=== PATIENT | male | born 1960 | race Caucasian/White ===

== ENCOUNTER 2024-11-05 08:22 | Inpatient (IN) | payer MEDICARE, SELFPAY ==
[2024-11-05] VITALS (26 sets, daily range): BP systolic 97–170; BP diastolic 62–99; BMI 30.8
[2024-11-05 02:39] LABS: % Basophils 0.6 % (0-2); % Eosinophils 1.5 % (0-6); % Immature Granulocytes 0.7 % (0-0.5); % Lymphocytes 25.7 % (20.5-51.1); % Monocytes 7.4 % (1.7-9.3); % Neutrophils 64.1 % (42.2-75.2); Absolute Basophils 0.1 10^3/uL (0-0.2); Absolute Eosinophils 0.1 10^3/uL (0-0.7); Absolute Immature Granulocytes 0.1 10^3/uL (0-0.05); Absolute Lymphocytes 2.3 10^3/uL (1.2-3.4); Absolute Monocytes 0.7 10^3/uL (0.1-0.6); Absolute Neutrophils 5.8 10^3/uL (1.4-6.5); Hematocrit 45.5 % (39.0-52.0); Hemoglobin 15.4 g/dL (13.0-18.0); Mean Corp Hgb Conc. 33.8 g/dL (33.0-37.0); Mean Corpuscular Hgb 29.3 pg (27.0-31.0); Mean Corpuscular Volume 86.5 fL (80.0-94.0); Mean Platelet Volume 9.9 fL (7.4-10.4); Nucleated Red Blood Cells % 0 % (-); Platelet Count 190 10^3/uL (130-400); Red Blood Cell Count 5.26 10^6/uL (4.70-6.10); Red Cell Dist. Width 14.1 % (11.5-14.5)
[2024-11-05 03:00] LABS: ALT (SGPT) 38 U/L (0-50); AST (SGOT) 34 U/L (17-59); Albumin 4.5 g/dl (3.5-5.0); Alkaline Phosphatase 62 U/L (38-126); Blood Urea Nitrogen 30 mg/dl (9-20); Calcium 10.6 mg/dl (8.4-10.2); Carbon Dioxide 24 mmol/L (22-30); Chloride 105 mmol/L (98-107); Estimated Creatinine Clearance 99 ml/min; Glucose 125 mg/dl (70-99); Potassium 4.2 mmol/L (3.5-5.1); Sodium 139 mmol/L (135-145); Total Bilirubin 0.3 mg/dl (0.2-1.3); Total Protein 7.3 g/dl (6.3-8.2); eGFR > 60.00
[2024-11-05 03:08] LABS: Troponin I 0.036 ng/ml
[2024-11-05 06:10] LABS: Troponin I 0.364 ng/ml
--- NOTE | 2024-11-05 06:34 | ED.GENMED ---
History of Present Illness
General
Chief Complaint: Heart Rate Problem
Source: patient
Time Seen by Provider: 11/05/24 06:20
History of Present Illness
History of Present Illness:
64-year-old male presents to the emergency room complaining of palpitations and shortness of breath. Patient awoken from sleep at about 4 AM with a sense of palpitations. He denies ever having anything similar. Patient has never seen a
precast molder. He denies any true chest tightness or heaviness. Patient was feeling well up until this started.
Phy Exam
Physical Exam
Physical Exam:
General: Awake, Alert, Oriented X3. No acute distress.
Vitals: Tachycardic
Head: Atraumatic
Eyes: Pupils equal, EOMI
Throat: Airway intact, no exudates
Neck: Trachea midline
Lungs: Clear and equal b/l
Heart: Regular rate, no murmurs
Abd: Soft, Nontender, No pulsatile mass
Neuro: Nonfocal
Skin: Warm, dry, no rash
Extremities: pulses equal b/l, no edema
Course
Orders/Labs/Results
Orders:
Orders
11/05/24 02:00
EKG [Electrocardiogram (*1)] Urgent
Reason for Study: Tachycardia
11/05/24 02:01
EKG- Treatment ONCE
11/05/24 02:20
Cardiovascular Evaluation Urgent
Complete Blood Count/With Diff Urgent
Comprehensive Metabolic Panel Urgent
Magnesium Urgent
NT-proBNP Urgent
Comment: ADD ON
TSH Reflex To Free T4 Urgent
Comment: ADD ON
Troponin I Urgent
11/05/24 05:36
Troponin I Urgent
11/05/24 Breakfast
NPO
Allow oral meds: Yes
Allow clear liquids: No
NPO with Ice Chips: No
11/05/24 06:38
Diltiazem 125 mg/125 ml Nss [Cardizem] 125 mg in 125 ml IV NOW
Initial dose in mg/hr, then titrate:: 5
Titrate to keep:: Heart rate 80-100 bpm
Titrate by mg/hr:: 5 mg/hr
Frequency of titrations (minutes):: 15
Maximum dose in mg/hr:: 15
Diltiazem HCl [Cardizem] 20 mg IV NOW STA
Heparin 4,000 units IV NOW STA
Nursing to Place Non Medication Order As Directed
Physician Order: PTT 6 hours after initial start of Heparin infusion
Above order entered?: Yes
11/05/24 06:44
Electrocardiogram (*1) Urgent
Reason for Study: Tachycardia
11/05/24 06:45
Heparin 48329 Units/250 ml 25,000 units in 250 ml IV PER PROTOCOL
Weight to be used for heparin protocol in kilograms (kg):: 111.9
Protocol:: Cardiac Tx/Acute Coronary
PTT Goal Range to be used:: PTT 73 to 111 seconds
Order type:: Initial
INITIAL Infusion Dose (UNITS/KG/hr) & then follow protocol:: 15 units/kg/hr
Infusion Dose in UNITS/hr & then follow protocol (UNITS/hr):: 1,500
INFUSION RATE in mL/hr & then follow protocol (mL/hr):: 15
PTT less than or equal to 64 seconds:: Increase rate by 200 units/hr (+ 2 mL/hr)
PTT 64.1 to 72.9 seconds:: Increase rate by 100 units/hr (+ 1 mL/hr)
PTT 73 to 111 seconds:: Target Range. No change in rate.
PTT 111.1 to 130.9 seconds:: Decrease rate by 100 units/hr (- 1 mL/hr)
PTT 131 to 199.9 seconds:: HOLD for 1 hr. Then decrease rate by 200 units/hr (- 2 mL/hr)
PTT greater than or equal to 200 seconds:: HOLD for 2 hrs & Notify Provider. Then decrease by 200 units/hr (-
2 mL/hr)
Lab follow-up:: Each change, PTT q6h until 2 consecutive are therapeutic. Then PTT
daily.
11/05/24 07:15
PTT Urgent
Comment: Obtain baseline before beginning heparin infusion if not already collected
11/05/24 07:26
EKG [Electrocardiogram (*1)] Urgent
Reason for Study: Other
Other Reason for Exam: conversion to sinus rhythm
EKG- Treatment ONCE
11/05/24 07:39
Echo 2D MMode Color/Doppler Routine
Reason for Study: afib
Consult Cardiology [CARDIOLOGY CONSULT] Routine
Consulting Provider: Jaydon Glover
Was physician already notified: Yes
Reason for consult: Afib
11/05/24 07:40
Aspirin 325 mg PO NOW STA
11/05/24 08:04
Add On- LAB Routine
Tests Added?: TSH with reflex FT4, Lipid panel, PTH intact
Admit/Transfer Patient As Directed
Co-Sign Provider:
Level of Care: Inpatient admission
Assign to:: IVU
Physician / Group: Hospitalist
Diagnosis: STEMI
Reason for Hospitalization: STEMI
Expected length of stay greater than two midnights?: Yes
ELOS- Estimated Length of Stay in days: 3
I certify the patient meets the requirements for IP care: Yes
11/05/24 08:05
Code Status As Directed
Resuscitation Status: Full Code
PRN Pain Medication Management As Directed
May give lesser potent ordered pain med per pt: Yes
preference::
Protocol:: Medication orders for pain may be administered in a
manner that supports deferring to patient preference
when the pt is:
- Requesting an ordered lesser potent pain medication.
Least to most potent pain medications are defined
as: acetaminophen < NSAID < tramadol < opioids
(morphine, oxycodone, hydromorphone).
- Requesting a lesser dose of the same medication IF
ORDERED.
- Requesting a less intrusive route of administration
if both routes are prescribed by the provider (PO <
IV).
11/05/24 08:08
Add On- LAB Urgent
Tests Added?: proBNP, magnesium
Fentanyl Citrate/Pf [Sublimaze] 100 mcg .ROUTE .STK-MED ONE
Heparin 10,000 units .ROUTE .STK-MED ONE
Heparin 1000 Units/500 ml [Heparin] 1,000 units in 500 ml .ROUTE .STK-MED
Heparin Sodium,Porcine/Ns/Pf [Heparin 2000 Units/1000 ml] 2,000 unit in 1,000 ml .ROUTE .STK-MED
Lidocaine HCl/Pf [Xylocaine-Mpf 1% Vial] 100 mg .ROUTE .STK-MED ONE
Midazolam HCl [Versed] 2 mg .ROUTE .STK-MED ONE
Nitroglycerin [Tridil] 1,500 mcg .ROUTE .STK-MED ONE
Verapamil Injectable [Isoptin/Verapamil Injection] 5 mg .ROUTE .STK-MED ONE
11/05/24 09:53
0.9% Sodium Chloride 1000 ml [Nss] 1,000 ml IV 75 mls/hr
Acetaminophen [Tylenol] 650 mg PO Q4HPRN PRN
Bisacodyl [Dulcolax] 10 mg RECTAL [id number] PRN
Docusate W/Senna [Senokot-S] 1 tablet PO BIDPRN PRN
Ondansetron Injectable [Zofran] 4 mg IV Q8HPRN PRN
Polyethylene Glycol Powder [Miralax] 17 grams PO DAILYPRN PRN
11/05/24 09:53
Heparin Protocol- PTT Orders As Directed
PTT per Heparin protocol: -Obtain CBC and baseline PTT - if not already collected.
-Obtain PTT 6 hours from start of infusion. Then, every 6 hours until 2 consecutive
PTT's are therapeutic. Then, PTT Daily.
-With each rate change, obtain PTT every 6 hours until 2 consecutive PTT's are
therapeutic. Then, PTT Daily.
Activity As Directed
Activity Level: Out of Bed-Early Mobility
Notify MD As Directed
Notify physician if: PTT is greater than or equal to 200.
Vital Signs As Directed
Frequency: Per unit guidelines
11/06/24 06:00
Basic Metabolic Panel IN AM
Magnesium IN AM
11/06/24 08:00
Aspirin Chewable [Low Strength Aspirin] 81 mg PO DAILY
11/07/24 06:00
Complete Blood Count/No Diff Q2D
Comment: notify provider: Platelet count < 130,000 or decrease by 50% from baseline
11/09/24 06:00
Complete Blood Count/No Diff Q2D
Comment: notify provider: Platelet count < 130,000 or decrease by 50% from baseline
11/11/24 06:00
Complete Blood Count/No Diff Q2D
Comment: notify provider: Platelet count < 130,000 or decrease by 50% from baseline
11/13/24 06:00
Complete Blood Count/No Diff Q2D
Comment: notify provider: Platelet count < 130,000 or decrease by 50% from baseline
11/15/24 06:00
Complete Blood Count/No Diff Q2D
Comment: notify provider: Platelet count < 130,000 or decrease by 50% from baseline
11/17/24 06:00
Complete Blood Count/No Diff Q2D
Comment: notify provider: Platelet count < 130,000 or decrease by 50% from baseline
11/19/24 06:00
Complete Blood Count/No Diff Q2D
Comment: notify provider: Platelet count < 130,000 or decrease by 50% from baseline
11/21/24 06:00
Complete Blood Count/No Diff Q2D
Comment: notify provider: Platelet count < 130,000 or decrease by 50% from baseline
Abnormal Lab Results
11/05/24 11/05/24
02:20 05:36
Abs Immat Gran (auto) 0.1 H 10^3/uL
(0-0.05)
Absolute Monos (auto) 0.7 H 10^3/uL
(0.1-0.6)
Immature Gran % 0.7 H %
(0-0.5)
BUN 30 H mg/dl
(9-20)
Glucose 125 H mg/dl
(70-99)
Calcium 10.6 H mg/dl
(8.4-10.2)
Troponin I 0.036 H* ng/ml 0.364 H* D ng/ml
Triglycerides 305 H mg/dl
(10-149)
VLDL Cholesterol, Calc 61 H mg/dl
(0-30)
11/05/24 02:20
11/05/24 02:20
Vital Signs
Initial and Last Documented VS:
Initial Vital Signs
Pulse Resp
126 21
11/05/24 01:37 11/05/24 01:37
Last Documented Vital Signs
Temp Pulse Resp BP Pulse Ox
98.7 F 68 17 145/82 95
11/05/24 01:40 11/05/24 12:13 11/05/24 08:05 11/05/24 12:13 11/05/24 08:05
MDM/Problems Addressed
Differential Diagnosis Includes:
A-fib with rapid ventricular response, SVT, acute coronary syndrome,
MDM/Problems Addressed:
Patient presents with palpitations. EKG shows A-fib with rapid ventricular response. ST elevation is not apparent in the initial EKG. Repeat EKG continues though A-fib with rapid ventricular response. Patient spontaneously converted to sinus
rhythm and a third EKG was obtained. There does appear to be significant ST elevation in lead V2, V3 and V4. There is no obvious reciprocal changes and the patient was not having chest pain at the time of this EKG. However the patient had 2
troponins which were elevated at now an EKG which is abnormal and therefore I discussed the presentation with cardiology. A catheter was called. Patient was taken to the Talent Acquisition Assistant by Dr. Alvarez
Chronic conditions affecting care: HTN
*Pulse Oximetry
Patient hypoxic: no
*EKG
Interpreted by ED Provider?: Yes
Heart Rate: 103
Rate: tachycardiac
Rhythm: a-fib
[place]: normal axis
Interval: normal interval
QRS Pattern: normal QRS
Ischemia: non-specific ST changes
*Skiver Blockers Interpretation
Rate: tachycardiac
Interpretation: abnormal
Heart Rate: 140
Rhythm: a-fib
*Critical Care Note
Total Time (30-74mins, 75-104mins- exclusive of procedures): 45 min
comment:
Critical care statement: A total of 45 minutes of critical care time was provided for this patient. This includes management of unstable vital signs, evaluation of the patient at bedside, reviewing the patient's pertinent medical records, discussion
with consultants, review of old EKGs and review of pertinent medical records. This time with separate from time utilized to perform the aforementioned documented procedures
ED Attending Note
-
Portions of this chart may have been created with voice recognition software.� Occasional wrong word or��sound alike� substitutions may have occurred due to the inherent limitations of voice recognition software.
Discharge Plan
Departure
Patient Disposition: Admit
Date of Disposition: 11/05/24
Time of Disposition: 07:19
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
Presentation/result/management discussed w/ accepting MD/DO: Hospitalist
Condition: Fair
Discharge Problem:
Atrial fibrillation with RVR
Interventions
Interventions:
*Risk Screen - Suicide Last Done: 11/05/24 10:20
*General Assessment Last Done: 11/05/24 01:40
*Neglect/Abuse Screening Last Done: 11/05/24 01:40
ED- Fall Risk Assessment Last Done: 11/05/24 01:56
*ED COVID-19 Vaccine History Last Done: 11/05/24 09:59
*Nursing Disposition Last Done: 11/05/24 08:10
ED- Cardiac Assessment Last Done: 11/05/24 01:56
ED- Pulmonary Assessment Last Done: 11/05/24 01:56
Discharge Date and Time
Discharge Date/Time: 11/05/24 08:10
[2024-11-05 07:36] LABS: APTT 28.2 Sec (23.4-35.0)
--- NOTE | 2024-11-05 08:08 | HPS.HSE ---
Family Physician
-
Family Physician: Fortino Blount
Chief Complaint
-
palpitations
History of Present Illness
64yo M with PMHx of ASCVD and HLD on alirocumab came with palpitations and mild SOB started appr 3.5h before this admission, found Afib with RVR in ED as well as repeated EKG concerning for STEMI in lateral leads. Converted to sinus around 7.30am
and remained asymptomatic. No chest pain noted. 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 No recent Hx of respiraory disease. Had one glass of wine at night before, does not smoke
Medical History
Past Medical History
Past Medical History: Reports Other
Additional Past Medical History:
see HPI
Past Surgical History: Reports None
Social History
Tobacco: Non-smoker
Alcohol: Occasional
Drug: None
Family History
Family History: Other (Afib in mother)
Allergies / Home Medications
Allergies reflects when Allergies were last updated in [facility].
Home Medications with original date entered in [facility]
Allergy/Medication List:
Allergies
Allergy/AdvReac Type Severity Reaction Status Date / Time
Lojxlvf-[id number]-XcP Reductase Allergy Intermediate Anaphylaxis Verified 11/05/24 04:36
Inhibitor
sulfamethoxazole Allergy Intermediate Itching Verified 11/05/24 05:09
[From Bactrim]
trimethoprim [From Bactrim] Allergy Intermediate Itching Verified 11/05/24 05:09
Home Medications
alirocumab 75 mg/mL subcutaneous pen injector 75 mg SC Q2W 11/05/24
aspirin 81 mg chewable tablet 81 mg PO DAILY 11/05/24
Review of Systems
-
History Source: Patient
A 12 point ROS was completed and negative except as noted: Yes
Physical Exam
Vital Signs
Vital Signs
Temp Pulse Resp BP Pulse Ox
98.7 F 85 17 170/89 95
11/05/24 01:40 11/05/24 08:05 11/05/24 08:05 11/05/24 08:05 11/05/24 08:05
Physical Exam
General: Well Developed, Well Nourished and No Apparent Distress
HEENT: NormoCephalic, Anicteric and Moist mucous membranes
Respiratory: Clear; No Wheezes, Rales or Crackles
Cardiac: S1/S2 and Regular Rhythm; No Murmur
GI: Soft, Non Tender and Non Distended
Genito-urinary: No costovertebral tender
Musculoskeletal: No Clubbing, No Cyanosis and No Edema
Skin: Warm
Neuro: Awake, Alert, Oriented, AO x 3 and No Motor Deficits
Psych: Calm
Laboratory Results
-
11/05/24 02:20
11/05/24 02:20
Laboratory Results
APTT 28.2 Sec (23.4-35.0) 11/05/24 07:15
Total Bilirubin 0.3 mg/dl (0.2-1.3) 11/05/24 02:20
AST 34 U/L (17-59) 11/05/24 02:20
ALT 38 U/L (0-50) 11/05/24 02:20
Alkaline Phosphatase 62 U/L (38-126) 11/05/24 02:20
Troponin I 0.364 ng/ml H* D 11/05/24 05:36
Data Reviewed
-
Lab Data: Labs Reviewed by me
Impression/Plan
-
A/P:
#Afib with RVR, new onset
rate/rhythm control as per cardiology
Heparin drip
loaded with ASA in ED
Cardiology informed on STEMI findings
telemetry afterwards
Echo
check TSH, proBNP, magnesium
Not tolerant of statins - on Alirocumab
#HLD
check LDL
#Hypercalcemia
check vit D and PTH
DVT ppx heparin drip
Full code
I have spent at least 78min reviewing chart, test results, communication with consultants, family and direct patient care
[2024-11-05 08:34] LABS: ACT-LR - POC 161 Seconds (116-155)
[2024-11-05 08:37] LABS: HDL Cholesterol 35 mg/dl; LDL Cholesterol, Calculated 81 mg/dl; Magnesium 2.1 mg/dl (1.6-2.3); Total Cholesterol 177 mg/dl (50-199); Triglyceride 305 mg/dl (10-149); Very Low Density Lipoprotein 61 mg/dl (0-30)
[2024-11-05 08:46] LABS: ACT-LR - POC 332 Seconds (116-155)
[2024-11-05 08:49] LABS: NT-proBNP 87.5 pg/ml
[2024-11-05 09:01] LABS: TSH Reflex To Free T4 2.87 uIU/ml (0.47-4.68)
[2024-11-05 09:30] LABS: ACT-LR - POC 218 Seconds (116-155)
--- NOTE | 2024-11-05 10:34 | ITS.CL.CATH ---
Commercial Insurance Underwriter - Catheterization
Cardiac Catheterization
Procedure Report:
LEFT HEART CATH AND CORONARY INTERVENTION
Date of Procedure: November 05, 2024
Referring: Dr. Jaydon Glover
PROCEDURES:
1. Left heart catheterization with coronary and single-plane left ventriculography
2. Unsuccessful attempted PCI of eccentric ruptured plaque in LAD involving the origin of the second diagonal branch
INDICATION: This is a 64-year-old gentleman with a past medical history notable for hyperlipidemia who presented to [facility] emergency department for evaluation of palpitations and shortness of breath starting about 3 hours before
admission. He has never felt and denies any chest tightness. He did report some shortness of breath. Upon arrival to [facility] emergency department he was noted to be in atrial fibrillation with a rapid ventricular response. Although
chest pain-free, troponin was obtained with admission lab and noted to be just above the upper limits of normal measuring 0.036 ng/mL. He was started on IV Cardizem and given a heparin bolus and infusion. Dr. Glover was consulted. The patient
takes 81 mg of aspirin and took a total of 325 mg prior to arrival to the emergency department. A repeat troponin was obtained several hours later and measured 0.364 ng/mL. He remained chest pain-free. Shortly thereafter, he spontaneously
converted from atrial fibrillation to sinus rhythm and a repeat electrocardiogram was now notable for hyperacute anterior ST changes potentially suggestive of an anterior wall myocardial infarction and a STEMI alert was activated even though the
patient had remained chest pain-free. He is now referred for coronary angiography
ACCESS: Right radial artery, 6 Yi sheath
HEMODYNAMICS (mmHg):
AO (s/d, m) : 138/74
LV (s/d) : 142/6
LVEDP : 17
CORONARY FINDINGS
Dominance: Right
LEFT MAIN: Normal
LEFT ANTERIOR DESCENDING: The LAD arises normally from the left main and runs in the anterior interventricular groove. The first diagonal arises very proximally from the LAD and is a small to medium caliber. The mid LAD has a very eccentric
ruptured plaque involving the origin of the second diagonal branch in the mid LAD ([place] 1,1,0). The LAD beyond the ruptured plaque has evidence of myocardial bridge but no significant obstructive coronary disease in the mid to distal LAD.
RAMUS: The ramus is a large-caliber bifurcating vessel with minor irregularities
CIRCUMFLEX: The circumflex is small and supplies a small OM
RIGHT CORONARY: The right coronary artery is a large-caliber dominant vessel with minor irregularities over its course but no focal obstructive stenosis
VENTRICULOGRAPHY: Left ventriculography was performed in WHIPPLE projection. The digital single-plane left ventricular ejection fraction is estimated at 60%. No regional wall motion abnormalities are noted.
ANGIOPLASTY PROCEDURE DETAIL: Upon review of the diagnostic catheterization films the decision was made to proceed with attempted percutaneous revascularization of the highly eccentric ruptured plaque in the mid LAD involving the origin of the
second diagonal branch. The patient took 324 mg of aspirin prior to arrival in the emergency department and 180 mg of ticagrelor was given in the emergency room department. Intravenous heparin was administered and the ACT was monitored throughout
the procedure.
The origin of the left main was cannulated with a 6 Yi EBU 3.75 guiding catheter. A short BMW guidewire was advanced into the LAD and could not engage or pass the stenotic segment into the LAD but easily cross into the diagonal branch. A
second BMW guidewire with a slightly different curved tip was then advanced to the mid LAD and also would not cross the very eccentric ruptured plaque in the mid LAD favoring the the diagonal branch. A Whisper wire was then advanced into the mid
LAD with a more generous curved tip. The Whisper wire would not cross and a Quick Cross microcatheter was advanced to the lesion and the Whisper wire could still not cross. Finally, a Floppy wire with a generous curved tip was advanced but would
not cross with an without microcatheter support. At this point, I considered Preschool Assistant 50 or 200 but was concerned for disrupting the plaque in the LAD and decided to terminate the procedure in favor of surgical revascularization with planned MCMAHON-LAD
and SVG-D +/- NIMCO clip.
RADIATION SUMMARY: Fluoro Time (min): 23.8, Dose (mGy): 1888, DAP (Gy.cm2) : 129.6
CONCLUSIONS
1. Complex ruptured plaque in the mid LAD involving the origin of the second diagonal branch and mid to distal LAD. I was unsuccessful while attempting to cross the highly eccentric segment in the mid LAD and the procedure was terminated
2. Preserved LV systolic function
RECOMMENDATIONS
1. Consult CT surgery
2. Continue aspirin and begin oral beta-asuncion
3. Statin intolerant. On Praluent injection. Will increase to 150 mg every 2 weeks. Zetia 10 mg daily
Copy to: Dr. Jaydon Glover
--- NOTE | 2024-11-05 10:45 | CON.CAR ---
Addendum entered and electronically signed by Jaydon Glover MD 11/05/24 13:27:
I saw and examined the patient.
The DIE CASTING SUPERVISOR's note was reviewed and I agree with the note.
Comment: 64 y/o male with dyslipidemia on alirocumab (statin intolerance - he told me muscle issues on multiple different statins, and not anaphylaxis as written in chart), neuropathy, and kidney stones who is here for evaluation of palpitations
that woke him up out of sleep around 1 AM, initial AF RVR, however converted and had anterolateral STEMI.
- cont asa and BB
- heparain gtt
- CTS this upcoming week
Original Note:
Consultation
Consultation Request
Date/Time Consultation Requested: 11/05/24 0739
Date/Time Consultation Performed: 11/05/24 1100
Requesting Provider: Dr. Gatica
Performing Provider: Karin BAKER for Dr. Glover
Reason for Consultation: AFIB, STEMI
Medical History
-
Chief Complaint: palpitations
History of Present Illness:
64 y/o male with dyslipidemia on alirocumab (statin intolerance - he told me muscle issues on multiple different statins, and not anaphylaxis as written in chart), neuropathy, and kidney stones who is here for evaluation of palpitations that woke
him up out of sleep around 1 AM. It felt like throbbing or fluttering . No SOB or CP. He came to the ER and was seen to be in afib with RVR. First trop was 0.036. He spontaneously converted to SR. However, his EKG showed anterolateral ST elevation.
He was taken to the clinical laboratory science professor with Dr. Alvarez and had complex ruptured plaque in the mid LAD involving the origin of the second diagonal branch and mid to distal LAD. Unsuccessful attempt to cross the highly eccentric segment in the mid LAD and the
procedure was terminated with plans for CT surgery consultation. He looks well at the time of my assessment as has no CP.
Past Medical History
Past Medical History: Hypercholesterolemia and Other (neuropathy, kidney stones)
Social History
Tobacco: Non-Smoker
Alcohol: None
Personal:
Living: With Family
Family History
Family History: Other (mom ALINA)
Allergies / Home Medications
Allergy/AdvReac Type Severity Reaction Status Date / Time
Bhkkyye-DLZ-XhQ Reductase Allergy Intermediate Anaphylaxis Verified 11/05/24 04:36
Inhibitor
sulfamethoxazole Allergy Intermediate Itching Verified 11/05/24 05:09
[From Bactrim]
trimethoprim [From Bactrim] Allergy Intermediate Itching Verified 11/05/24 05:09
�Medication �Instructions �Recorded �Confirmed �Type
alirocumab 75 mg/mL subcutaneous 75 mg SC Q2W 11/05/24 11/05/24 History
pen injector
aspirin 81 mg chewable tablet 81 mg PO DAILY 11/05/24 11/05/24 History
Review of Systems
-
History Source: Patient
All other systems: Negative unless noted
Cardiac: Palpitations
Physical Exam
Vital Signs
Temp Pulse Resp BP Pulse Ox
98.7 F 68 17 141/86 95
11/05/24 01:40 11/05/24 10:20 11/05/24 08:05 11/05/24 10:20 11/05/24 08:05
Lab Results
11/05/24 02:20
Troponin I Cancelled 11/05/24 22:00
Tnh-E-Vxtlnyektjp Pept 87.5 pg/ml 11/05/24 02:20
Physical Exam
General: Well Developed and Well Nourished
HEENT: Normocephalic and Anicteric
Respiratory: Non Labored Respirations
Cardiac: Regular Rhythm
Musculoskeletal: No Edema
Skin: Warm and Dry
Neuro: AO x 3
Psych: Calm
Impression / Plan
-
STEMI:
-this diagnosis is threat to life
-cath 11/05/24: Complex ruptured plaque in the mid LAD involving the origin of the second diagonal branch and mid to distal LAD. Unsuccessful attempt to cross the highly eccentric segment in the mid LAD and the procedure was terminated. Preserved
LV systolic function noted.
-CT surgery is consulted
-continue ASA. BB added. He is statin intolerant. He is on Praluent injection. Increased to 150 mg every 2 weeks. Zetia 10 mg daily added.
-heparin drip to resume at 1400 per nursing- continue IV heparin, which requires intensive monitoring
-trend trops to peak
-echo
AFIB with RVR, paroxysmal:
-now in SR
-continue BB
-[id number] score is 2 for CAD and age- heparin gtt as above
Dyslipidemia:
-plan as above
Data Reviewed
-
EKG: Tracing Personally Visualized and interpreted (SR with anterolateral ST elevation)
Medical Tests (Nuc Med, Echo etc): Report Reviewed by me
Labs: Labs Reviewed by me
--- NOTE | 2024-11-05 10:59 | PTCARENOTE ---
Received patient from wharf labourer into room 2257. Pt s/p L heart cath via R radial. TR band intact, placed at 0927. Pt AAOx3, without complaints, VSS, NSR on recyclable materials collector. Family at bedside. Dr. Alvarez in to see patient and discuss with family.
Oriented patient to room, post cath and IVU policies and procedures. Patient verbalized understanding. Will continue to monitor.
--- NOTE | 2024-11-05 11:38 | CONSULT.CT ---
Addendum entered and electronically signed by Ishmael Zavala MD 11/07/24 06:28:
I saw and examined the patient.
The HOUSE PRINCIPAL's note was reviewed and I agree with the note.
Comment:
I was present during his LHC, angulation of the LAD at the Diagonal take off was difficult to cross safely with a wire, even after multiple attempts. He was asymptomatic, despite his STEMI EKG reading. He tells me he did have significant indigestion
at night with concomitant change in his heart rhythm later found to be afib. Perhaps this could be his anginal equiv. Regardless, he is a good surgical candidate and I agree that 2v CABG with arterial grafts would serve him well. Plan for CABG once
brilinta has washed out, TEG on 11/08 with tentative plan for CABG x 2 + LA MAZE + NIMCO Clip on 11/09/24. We dsicussed the risks and benefts of surgery, as well as the potential complications. We reviewed his STS risk and consent was obtained.
Thank you for involving me in the care of this patient. Please feel free to contact me with any questions or concerns.
Ishmael Zavala MD, MS
Cardiothoracic Surgeon
[facility]
This dictation was created using the [employer] dictation system. Please excuse any grammatical, typographical, or 'sound alike' errors.
Original Note:
Consultation
-
Date/Time Consultation Requested: 11/05 1130
Date/Time Consultation Performed: 11/05 1140
Requesting Provider: Belen SCHMID
Performing Provider: Marcelina Zavala MD
Reason for Consultation: CABG eval
Patient History
Physicians
Family Physician: Fortino Blount
Outpatient Boom Master: None
Inpatient Boom Master: Dr. Jaydon Glover
History of Present Illness
64-year-old male with past medical history of CAD and hyperlipidemia presented to [facility] on 11/05 with symptoms of palpitations and mild shortness of breath. He was found to be in A-fib with rapid ventricular response with ST
elevations in the lateral leads. A STEMI alert was called and patient converted to sinus rhythm around 7:30 AM. Patient was Brilinta loaded in the ER. Patient was taken to the cardiac [facility] [address] [facility] and was found to have a complex ruptured plaque of
the mid LAD which also involve the second diagonal branch. PCI was unsuccessful therefore CT surgery was consulted for surgical evaluation.
Past Medical History
Past Medical History: Hypercholesterolemia and Other
LE Neuropathy s/p Viral infection
Past Surgical History
Past Surgical History: Other
Recent left thumb cyst removal by Dr. Campbell
Hernia repair 60 years ago
Dental History
Goes every 6 months and has a dental implant
Family History
Mother: Still Living (afib/ valve disease)
Father: N/A
Social History
Alcohol: Occasional
Drug: None
Tobacco: Non-Smoker
Personal:
Living: With Family
Employment: Retired
Allergies
Allergy/AdvReac Type Severity Reaction Status Date / Time
Naohgeb-GKB-RnO Reductase Allergy Intermediate Anaphylaxis Verified 11/05/24 04:36
Inhibitor
sulfamethoxazole Allergy Intermediate Itching Verified 11/05/24 05:09
[From Bactrim]
trimethoprim [From Bactrim] Allergy Intermediate Itching Verified 11/05/24 05:09
Home Medications
�Medication �Instructions �Recorded �Confirmed �Type
alirocumab 75 mg/mL subcutaneous 75 mg SC Q2W 11/05/24 11/05/24 History
pen injector
aspirin 81 mg chewable tablet 81 mg PO DAILY 11/05/24 11/05/24 History
Review of Systems
-
History Source: Patient
General: Reports No Symptoms
HEENT: Reports No Symptoms
Respiratory: Reports SOB
Cardiac: Reports Palpitations
Abdomen/GI: Reports No Symptoms
: Reports No Symptoms
Musculoskeletal: Reports No Symptoms
Skin: Reports No Symptoms
Neurological: Reports No Symptoms
Vascular: Reports No Symptoms
Physical Exam
Vital Signs
Temp 98.7 F 11/05/24 01:40
Temp route: Oral 11/05/24 01:40
Pulse 68 11/05/24 10:20
Resp Rate 17 11/05/24 08:05
Blood pressure 141/86 11/05/24 10:20
Blood pressure extremity used: Right upper arm 11/05/24 01:40
Position: Sitting 11/05/24 01:40
MAP (cuff-Nathalia Monitor) 102 11/05/24 10:20
SaO2 95 11/05/24 08:05
Oxygen Mode of Delivery Room air 11/05/24 01:56
Acceptable pain level during hospitalization? 0 11/05/24 01:40
Can the patient verbally communicate their pain? Yes 11/05/24 09:59
Actual Weight 111.9 kg 11/05/24 01:56
Body Mass Index (BMI) 30.8 11/05/24 01:56
Labs
11/05/24 02:20
APTT 28.2 Sec (23.4-35.0) 11/05/24 07:15
Troponin I Cancelled 11/05/24 22:00
Obm-B-Ffuygnykpeq Pept 87.5 pg/ml 11/05/24 02:20
Exam
General: Well Developed and Well Nourished
HEENT: Normocephalic
Respiratory: Clear
Cardiac: S1/S2
GI: Soft and Non Tender
Rectal: Deferred by Provider
Skin: Warm, Dry and Other (recent incision on Left thumb)
Neuro: AO x 3
Lymph: No Lymphadenopathy
Psych: Calm
Assessment / Plan
-
64-year-old male with past medical history listed above presents to the emergency room with rapid A-fib and a STEMI. She underwent an unsuccessful PCI and was transferred to IVU. CT surgery was consulted for CABG.
#CAD
-Patient's case will be discussed with attending physician. Further details regarding surgical timing intervention will be determined after attending physicians full evaluation
-Routine preoperative cardiothoracic surgery orders will be initiated.
-STS risk stratification score will be calculated after preoperative testing is complete
-Continue nitroglycerin and heparin gtt per cardiology
-S/p Brilinta load in the ER
-Eventual echocardiogram
-History of statin intolerance - on Alirocumab
#A-fib with RVR
-Continue heparin drip
-Will talk to the patient about the benefits of a left atrial appendage clip and maze procedure
[2024-11-05 11:53] LABS: HDL Cholesterol 46 mg/dl; LDL Cholesterol, Calculated 112 mg/dl; Total Cholesterol 183 mg/dl (50-199); Triglyceride 129 mg/dl (10-149); Very Low Density Lipoprotein 25 mg/dl (0-30)
[2024-11-05] MEDS: NSS 1000 IV (12:13)
[2024-11-05] MEDS: TOPROL XL 50 MG PO ×2 (12:13→20:29)
[2024-11-05] MEDS: HEPARIN 25000 UNITS/250 ML IV (13:57)
[2024-11-05 14:11] LABS: Glycohemoglobin (HgbA1c) 5.3 % (4.0-5.6)
[2024-11-05 14:16] LABS: Hematocrit 44.7 % (39.0-52.0); Hemoglobin 15.3 g/dL (13.0-18.0); Mean Corp Hgb Conc. 34.2 g/dL (33.0-37.0); Mean Corpuscular Hgb 29.3 pg (27.0-31.0); Mean Corpuscular Volume 85.6 fL (80.0-94.0); Mean Platelet Volume 9.4 fL (7.4-10.4); Platelet Count 198 10^3/uL (130-400); Red Blood Cell Count 5.22 10^6/uL (4.70-6.10); Red Cell Dist. Width 14.1 % (11.5-14.5)
[2024-11-05 14:25] LABS: APTT 29.5 Sec (23.4-35.0)
[2024-11-05 20:23] LABS: APTT 58.2 Sec (23.4-35.0)
--- NOTE | 2024-11-05 21:38 | PTCARENOTE ---
Received patient at change of shift. Patient sitting in chair, awake, alert, and oriented with family in the room. Right radial site clean, dry, and intact. Soft with no swelling or hematoma, little ecchymosis. Pt has heparin drip running at 15
units/hr and NSS running at 75mL/hr through left AC. BP 129/77, NSR 60s, 96% on room air. Patient denies any chest pain or discomfort at this time. Discussed plan of care. Patient verbalized understanding. Agrees to call RN with any chest pain or
palpitations. Call woods within reach.
[2024-11-06] VITALS (8 sets, daily range): BP systolic 122–153; BP diastolic 66–102
[2024-11-06 00:22] LABS: Intact PTH 122.2 pg/ml (13.6-85.8)
[2024-11-06 03:06] LABS: INR 0.96; PT 13.3 Sec (11.4-14.6)
[2024-11-06 03:07] LABS: APTT 86.2 Sec (23.4-35.0)
[2024-11-06 03:10] LABS: Hematocrit 44.5 % (39.0-52.0); Hemoglobin 15.2 g/dL (13.0-18.0); Mean Corp Hgb Conc. 34.2 g/dL (33.0-37.0); Mean Corpuscular Hgb 29.3 pg (27.0-31.0); Mean Corpuscular Volume 85.7 fL (80.0-94.0); Mean Platelet Volume 9.5 fL (7.4-10.4); Platelet Count 187 10^3/uL (130-400); Red Blood Cell Count 5.19 10^6/uL (4.70-6.10); Red Cell Dist. Width 14.2 % (11.5-14.5); White Blood Cell Count 11.8 10^3/uL (4.8-10.8)
[2024-11-06 03:55] LABS: ALT (SGPT) 37 U/L (0-50); AST (SGOT) 61 U/L (17-59); Albumin 4.1 g/dl (3.5-5.0); Alkaline Phosphatase 53 U/L (38-126); Blood Urea Nitrogen 16 mg/dl (9-20); Calcium 10.4 mg/dl (8.4-10.2); Carbon Dioxide 20 mmol/L (22-30); Chloride 106 mmol/L (98-107); Direct Bilirubin 0.2 mg/dl (0.0-0.4); Estimated Creatinine Clearance 110 ml/min; Glucose 95 mg/dl (70-99); HDL Cholesterol 39 mg/dl; LDL Cholesterol, Calculated 111 mg/dl; Potassium 4.2 mmol/L (3.5-5.1); Sodium 136 mmol/L (135-145); Total Bilirubin 0.8 mg/dl (0.2-1.3); Total Cholesterol 181 mg/dl (50-199); Total Protein 6.8 g/dl (6.3-8.2); Triglyceride 159 mg/dl (10-149); Very Low Density Lipoprotein 31 mg/dl (0-30); eGFR > 60.00
[2024-11-06] MEDS: HEPARIN 25000 UNITS/250 ML IV ×2 (05:22→18:40)
--- NOTE | 2024-11-06 07:58 | PTCARENOTE ---
Pt recevied from outgoing RN, pt in bed aaox4, vss, ra, heparin gtt @ 1700units, oob self assistance, PIV x2, no c/o cp, pt plan for surgery on thursday.
--- NOTE | 2024-11-06 08:43 | W.PN.HOSP.TC ---
Today's Communication/Plan
-
pending CABG by CTS
Assessment / Plan
Assessment / Plan
64yo M with PMHx of ASCVD and HLD on alirocumab came with palpitations and mild SOB started appr 3.5h before this admission, found Afib with RVR in ED as well as repeated EKG concerning for STEMI, s/p cardiac cath, however unable to stent the lesion
in LAD, being prepared for CABG by CTS
A/P:
#Afib with RVR, new onset
#STEMI
rate/rhythm control as per cardiology
Cardiology consult: heparin, ASA, s/p cath on 11/05/24:Complex ruptured plaque in the mid LAD involving the origin of the second diagonal branch and mid to distal LAD. I was unsuccessful while attempting to cross the highly eccentric segment in the
mid LAD and the procedure was terminated
telemetry afterwards
Echo
TSH, proBNP, magnesium WNL
Not tolerant of statins - on Alirocumab. LDL 111
#HLD
Alirocumab. add Zetia
#Secondary Hypercalcemia
Minimal vit D deficiency
add cholecalciferol
Outpatient endocrinology
#hx of nephrolitiasuis 2/2 hyperuricemia
cont potassium citrate and allopurinol
DVT ppx heparin drip
Full code
I have spent at least 58min reviewing chart, test results, communication with consultants, family and direct patient care
Anticipated Discharge: > 48 hours
Subjective/Interval History
-
Date of Service: November 06, 2024
Objective Data
-
Labs:
Laboratory Results
11/06/24
02:41
WBC 11.8 H
Hgb 15.2
Hct 44.5
Plt Count 187
PT 13.3
INR 0.96
APTT 86.2 H
Sodium 136
Potassium 4.2
Chloride 106
Carbon Dioxide 20 L
BUN 16
Creatinine 0.8
Glucose 95
Calcium 10.4 H
Total Bilirubin 0.8
AST 61 H
ALT 37
Alkaline Phosphatase 53
Vital Signs:
Vital Signs
Temp Pulse Resp BP Pulse Ox
97.5 F 53 20 146/84 96
11/06/24 07:55 11/06/24 07:30 11/06/24 06:51 11/06/24 06:56 11/06/24 07:55
I&O
11/05/24 11/06/24 11/07/24
06:59 06:59 06:59
Intake Total 375 / 375
Output Total 1395 / 1395
Balance -1020 / -1020
Review of Systems
-
History Source: Patient
All other systems: Reviewed and negative
Physical Exam
-
General: No Apparent Distress
HEENT: Normocephalic
Respiratory: Clear to Auscultation
Cardiac: Regular Rhythm
Neuro: Awake, Alert, Oriented and AO x 3
Psych: Calm
[2024-11-06] MEDS: NSS IV ×2 (09:00→13:19)
--- NOTE | 2024-11-06 09:12 | W.PN.UPDATE ---
Update Note
Progress Note Update
Dr. Zavala and I met with patient and this morning. The need for a CABG was discussed with patient and consent was obtained. Tentative surgery date will be on November 09, 2024. Plan will be to check a TEG on Thursday to check the effects of the
Brilinta received in the ER and if they are within limits we will move forward with surgery, if not, surgery will be delayed. At this time we will continue ongoing preop testing.
[2024-11-06 10:03] LABS: APTT 110.4 Sec (23.4-35.0)
[2024-11-06] MEDS: UROCIT-K 15 MEQ PO ×2 (10:22→20:40)
[2024-11-06] MEDS: ZYLOPRIM 300 MG PO (10:22)
[2024-11-06] MEDS: LOW STRENGTH ASPIRIN 81 MG PO (10:23)
[2024-11-06] MEDS: TOPROL XL 50 MG PO ×2 (10:23→20:41)
--- NOTE | 2024-11-06 11:07 | W.PN.CD ---
Today's Communication / Plan
-
Cont meds
troponin ordered
Impression / Plan
-
STEMI:
-this diagnosis is threat to life
-cath 11/05/24: Complex ruptured plaque in the mid LAD involving the origin of the second diagonal branch and mid to distal LAD. Unsuccessful attempt to cross the highly eccentric segment in the mid LAD and the procedure was terminated. Preserved
LV systolic function noted.
-CT surgery is consulted
-continue ASA. BB added. He is statin intolerant. He is on Praluent injection. Increased to 150 mg every 2 weeks. Zetia 10 mg daily added.
-heparin drip
-trend trops to peak
-echo Thursday
AFIB with RVR, paroxysmal:
-now in SR
-continue BB
-[id number] score is 2 for CAD and age- heparin gtt as above
Dyslipidemia:
-plan as above
Subjective:
Feels well no new complaints plan for CTS Wed
Physical Exam
Vital Signs/Labs
Vital Signs
Temp Pulse Resp BP Pulse Ox
97.5 F 53 20 146/84 96
11/06/24 07:55 11/06/24 07:30 11/06/24 06:51 11/06/24 06:56 11/06/24 07:55
11/05/24 11/06/24 11/07/24
06:59 06:59 06:59
Actual Weight 246 lb 11.156 oz 240 lb 4.862 oz
11/06/24 02:41
11/06/24 02:41
PT 13.3 Sec (11.4-14.6) 11/06/24 02:41
INR 0.96 11/06/24 02:41
APTT 110.4 Sec (23.4-35.0) H 11/06/24 09:26
Magnesium 2.0 mg/dl (1.6-2.3) 11/06/24 02:41
Triglycerides 159 mg/dl (10-149) H 11/06/24 02:41
LDL Cholesterol, Calc 111 mg/dl 11/06/24 02:41
VLDL Cholesterol, Calc 31 mg/dl (0-30) H 11/06/24 02:41
HDL Cholesterol 39 mg/dl 11/06/24 02:41
11/05/24
02:20
Bdl-Y-Maqoaxuwnby Pept 87.5
LAB Results
11/05/24 11/05/24 11/05/24
02:20 05:36 09:53
Troponin I 0.036 H* 0.364 H* D Cancelled
11/05/24 11/05/24 11/05/24
10:00 11:24 15:53
Troponin I Cancelled 3.450 H* D Cancelled
11/05/24 11/05/24 11/05/24
16:00 17:23 21:53
Troponin I Cancelled 5.200 H* D Cancelled
11/05/24
22:00
Troponin I Cancelled
Physical Exam
Constitutional: No acute distress
EENT: Anicteric
Cardiovascular: Rhythm & rate is regular and Pedal edema is absent
Respiratory: Respiratory effort normal and Lungs clear to auscul.
GI: Soft
Neuro/Psych: AO x 3
Data Reviewed
-
Date of Service: November 06, 2024
Medical Decision Making: Reviewed Test Results
EKG: Tracing Personally Visualized and interpreted (sr)
Labs: Labs Reviewed by me
--- NOTE | 2024-11-06 12:12 | PTCARENOTE ---
pt reassessment unchanged from previous, vss, ra, sb, heparin gtt, no c/o cp, q6hr troponin.
--- NOTE | 2024-11-06 16:31 | PTCARENOTE ---
Pt reassessment unchanged from previous, vss, ra, nsr/sb, no c/o cp, heparin gtt therapeutic daily checks, self care in room, cts work up, echo/carotid us tomorrow.
--- NOTE | 2024-11-06 21:53 | PTCARENOTE ---
Received patient at change of shift. Sitting in chair, awake, alert, and oriented with family bedside. Right radial site clean, dry, and intact-- ecchymotic. No swelling or hematoma. Heparin running at 1700 units/hr through left AC. BP 135/66,
SB/NSR with 1st degree 50s-60s, and 96% on room air. Patient denies SOB or palpitations at thing time. Discussed plan of care and different US scheduled for tomorrow. Patient verbalized understanding. Call woods within reach.
[2024-11-07] VITALS (9 sets, daily range): BP systolic 122–146; BP diastolic 65–86
[2024-11-07 03:31] LABS: % Basophils 0.5 % (0-2); % Eosinophils 2.3 % (0-6); % Immature Granulocytes 0.5 % (0-0.5); % Lymphocytes 38.4 % (20.5-51.1); % Monocytes 6.6 % (1.7-9.3); % Neutrophils 51.7 % (42.2-75.2); Absolute Basophils 0.1 10^3/uL (0-0.2); Absolute Eosinophils 0.2 10^3/uL (0-0.7); Absolute Immature Granulocytes 0.1 10^3/uL (0-0.05); Absolute Lymphocytes 3.8 10^3/uL (1.2-3.4); Absolute Monocytes 0.7 10^3/uL (0.1-0.6); Absolute Neutrophils 5.2 10^3/uL (1.4-6.5); Hematocrit 45.2 % (39.0-52.0); Hemoglobin 15.6 g/dL (13.0-18.0); Mean Corp Hgb Conc. 34.5 g/dL (33.0-37.0); Mean Corpuscular Hgb 29.7 pg (27.0-31.0); Mean Corpuscular Volume 86.1 fL (80.0-94.0); Mean Platelet Volume 9.8 fL (7.4-10.4); Nucleated Red Blood Cells % 0 % (-); Platelet Count 203 10^3/uL (130-400); Red Blood Cell Count 5.25 10^6/uL (4.70-6.10)
[2024-11-07 03:54] LABS: ALT (SGPT) 35 U/L (0-50); AST (SGOT) 41 U/L (17-59); Albumin 4.3 g/dl (3.5-5.0); Alkaline Phosphatase 56 U/L (38-126); Blood Urea Nitrogen 20 mg/dl (9-20); Calcium 10.6 mg/dl (8.4-10.2); Carbon Dioxide 21 mmol/L (22-30); Chloride 103 mmol/L (98-107); Estimated Creatinine Clearance 98 ml/min; Glucose 96 mg/dl (70-99); Potassium 4.5 mmol/L (3.5-5.1); Sodium 135 mmol/L (135-145); Total Bilirubin 0.7 mg/dl (0.2-1.3); Total Protein 7.1 g/dl (6.3-8.2); eGFR > 60.00
[2024-11-07 08:57] LABS: ACT-LR - POC > 397 Seconds (116-155)
[2024-11-07] MEDS: ZYLOPRIM 300 MG PO (09:09)
[2024-11-07] MEDS: TOPROL XL 50 MG PO (09:09)
[2024-11-07] MEDS: UROCIT-K 15 MEQ PO ×2 (09:09→21:03)
[2024-11-07] MEDS: LOW STRENGTH ASPIRIN 81 MG PO (09:09)
--- NOTE | 2024-11-07 09:15 | W.PN.CD ---
Today's Communication / Plan
-
decreased metop to 25 mg BID given bradycardia
CTS plan Wed
Impression / Plan
-
STEMI:
-this diagnosis is threat to life
-cath 11/05/24: Complex ruptured plaque in the mid LAD involving the origin of the second diagonal branch and mid to distal LAD. Unsuccessful attempt to cross the highly eccentric segment in the mid LAD and the procedure was terminated. Preserved
LV systolic function noted.
-CT surgery is consulted
-continue ASA. BB added. He is statin intolerant. He is on Praluent injection. Increased to 150 mg every 2 weeks. Zetia 10 mg daily added.
-heparin drip
-trend trops to peak
-echo Thursday
AFIB with RVR, paroxysmal:
-now in SR
-continue BB, decreased to 25 mg BID
-[id number] score is 2 for CAD and age- heparin gtt as above
Dyslipidemia:
-plan as above
Subjective:
Feels well no new complaints plan for CTS Wed
Physical Exam
Vital Signs/Labs
Vital Signs
Temp Pulse Resp BP Pulse Ox
97.9 F 58 20 132/67 95
11/07/24 08:30 11/07/24 09:09 11/07/24 08:30 11/07/24 09:09 11/07/24 08:30
11/06/24 11/07/24 11/08/24
06:59 06:59 06:59
Actual Weight 240 lb 4.862 oz
11/07/24 02:55
11/07/24 02:55
PT 13.3 Sec (11.4-14.6) 11/06/24 02:41
INR 0.96 11/06/24 02:41
APTT 89.0 Sec (23.4-35.0) H 11/07/24 02:55
Magnesium 2.0 mg/dl (1.6-2.3) 11/06/24 02:41
Triglycerides 159 mg/dl (10-149) H 11/06/24 02:41
LDL Cholesterol, Calc 111 mg/dl 11/06/24 02:41
VLDL Cholesterol, Calc 31 mg/dl (0-30) H 11/06/24 02:41
HDL Cholesterol 39 mg/dl 11/06/24 02:41
11/05/24
02:20
Ogm-S-Nkflaaalxqu Pept 87.5
LAB Results
11/05/24 11/05/24 11/05/24
02:20 05:36 09:53
Troponin I 0.036 H* 0.364 H* D Cancelled
11/05/24 11/05/24 11/05/24
10:00 11:24 15:53
Troponin I Cancelled 3.450 H* D Cancelled
11/05/24 11/05/24 11/05/24
16:00 17:23 21:53
Troponin I Cancelled 5.200 H* D Cancelled
11/05/24 11/06/24 11/06/24
22:00 12:35 17:15
Troponin I Cancelled 2.460 H* Cancelled
11/07/24
01:00
Troponin I Cancelled
Physical Exam
Constitutional: No acute distress
Cardiovascular: Rhythm & rate is regular and Pedal edema is absent
Respiratory: Respiratory effort normal and Lungs clear to auscul.
GI: Soft
Neuro/Psych: AO x 3
Data Reviewed
-
Date of Service: November 07, 2024
EKG: Tracing Personally Visualized and interpreted (sr)
Echo: Tracing Personally Visualized and interpreted
Labs: Labs Reviewed by me
[2024-11-07] MEDS: HEPARIN 25000 UNITS/250 ML IV (11:13)
--- NOTE | 2024-11-07 13:30 | W.PN.UPDATE ---
Addendum entered and electronically signed by SAMUEL Houston 11/07/24 13:46:
Procedure Type:�Isolated CABG
PERIOPERATIVE OUTCOME ESTIMATE %
Operative Mortality 0.833%
Morbidity & Mortality 4.83%
Stroke 0.524%
Renal Failure 0.517%
Reoperation 1.89%
Prolonged Ventilation 2.73%
Deep Sternal Wound Infection 0.197%
Long Hospital Stay (>14 days) 2.43%
Short Hospital Stay (<6 days)* 63.1%
Clinical Summary
Planned Surgery: Isolated CABG, Urgent, First cardiovascular surgery
Demographics: 64 year old, White, male, 111kg, 190cm, BMI: 30.8 kg/m�
Insurance/Payor: None / self
Lab Values: Creatinine: 0.8 mg/dL, Hematocrit: 44.5%, WBC Count: 11.8 10�/�L, Platelet Count: 701581 cells/�L
Substance Abuse: Never smoker
Coronary Artery Disease: 2 vessels diseased, STEMI, PA: 1 to 7 Days
Valve Disease: Trivial/Trace MR
Original Note:
Update Note
Progress Note Update
TEG was drawn today. Results showed little platelet inhibition, therefore, surgery will be moved to tomorrow. patient was updated.
--- NOTE | 2024-11-07 14:06 | W.PN.HOSP.TC ---
Today's Communication/Plan
-
monitor vitals
see plan
CABG
cw hep
Assessment / Plan
Assessment / Plan
64yo M with PMHx of ASCVD and HLD on alirocumab came with palpitations and mild SOB started appr 3.5h before this admission, found Afib with RVR in ED as well as repeated EKG concerning for STEMI, s/p cardiac cath, however unable to stent the lesion
in LAD, being prepared for CABG by CTS
A/P:
#Afib with RVR, new onset
#STEMI
rate/rhythm control as per cardiology
Cardiology consult: heparin, ASA, s/p cath on 11/05/24:Complex ruptured plaque in the mid LAD involving the origin of the second diagonal branch and mid to distal LAD. I was unsuccessful while attempting to cross the highly eccentric segment in the
mid LAD and the procedure was terminated
CTS following
TSH, proBNP, magnesium WNL
Not tolerant of statins - on Alirocumab. LDL 111
#HLD
Alirocumab. add Zetia
#Secondary Hypercalcemia
Minimal vit D deficiency
add cholecalciferol
Outpatient endocrinology
#hx of nephrolitiasuis 2/2 hyperuricemia
cont potassium citrate and allopurinol
DVT ppx heparin drip
Full code
General: No Apparent Distress
HEENT: Normocephalic
Respiratory: Clear to Auscultation
Cardiac: Regular Rhythm
Neuro: Awake, Alert, Oriented and AO x 3
Psych: Calm
I have spent at least 51 min reviewing chart, test results, communication with consultants, family and direct patient care
Anticipated Discharge: > 48 hours
Subjective/Interval History
-
Date of Service: November 07, 2024
denies pain
Objective Data
-
Labs:
Laboratory Results
11/07/24
02:55
WBC 10.0
Hgb 15.6
Hct 45.2
Plt Count 203
APTT 89.0 H
Sodium 135
Potassium 4.5
Chloride 103
Carbon Dioxide 21 L
BUN 20
Creatinine 0.9
Glucose 96
Calcium 10.6 H
Total Bilirubin 0.7
AST 41
ALT 35
Alkaline Phosphatase 56
Vital Signs:
Vital Signs
Temp Pulse Resp BP Pulse Ox
97.9 F 50 18 132/67 96
11/07/24 12:01 11/07/24 10:00 11/07/24 12:01 11/07/24 09:09 11/07/24 12:01
I&O
11/06/24 11/07/24 11/08/24
06:59 06:59 06:59
Intake Total 375 / 375 400 / 400
Output Total 1395 / 1395
Balance -1020 / -1020 400 / 400
--- NOTE | 2024-11-07 15:44 | PTCARENOTE ---
Heparin gtt infusing at 1700 ml/hr. Pt has no complaints chest pain/discomfort at this time. VSS. Assessment completed as documented. Call chuck w/in reach.
--- NOTE | 2024-11-07 16:17 | W.PN.SURGUPD ---
Surgical Update
Surgical Update
S: Asked by medicine team to evaluate patient for suture removal to left thumb.
B: Status post mucinous cyst removal as an outpatient with Dr. Campbell of [facility] earlier this month. Sutures were scheduled to be removed as an outpatient today, but patient is to have open heart surgery here this admission and will not be able
to follow up for an unknown amount of time. Dr. Campbell was contacted and cleared patient for suture removal here while inpatient. Currently on heparin gtt.
A: 6 of what appear to be nylon vertical mattress sutures noted to left thumb with well approximated and healed incisional wound with some minimal edema present to site. I removed the sutures without difficulty. Some discomfort during the procedure
which resolved quickly. Small amount of bleeding and suture insertion sites, but easily resolved with light pressure. Adaptic dressing applied.
R: Ok for preop shower. No need for further dressings once bleeding controlled unless recommended by Dr. Campbell. If some oozing present given active infusing anticoagulation, would use adaptic dressing with overlying gauze pad. Patient and family with
multiple questions about the thumb and plan going forward regarding the cyst and mobility, advised to call Dr. Campbell's office with these questions and concerns to discuss further.
--- NOTE | 2024-11-07 16:30 | PTCARENOTE ---
Report received from Candice BENNETT in IVU: patient bedside report given once patient arrived into room 2266 CVICU: heparin gtt verified as therapeutic ptt's and infusing via pump at 1700units/hr. Denies pain. NSR on monitor. Room air.
--- NOTE | 2024-11-07 17:22 | CM ---
spoke to pt, and daughter in room. we discussed pre op CABG teaching including sternal and driving restrictions. he is prev indep, lives with his in a 2 story home with 1 step to enter. he denies any dme's. he has the cardiac educ book. he
is agreeable to a f/u visit from the ct transitional care nurses after dc. cm role explained and all questions answered.
--- NOTE | 2024-11-07 21:00 | PTCARENOTE ---
Assumed care of pt from venita RN. Walking rounds completed. Pt AAOx3. Up ad genrao. Sinus rhythm to sinus laureen on the tele monitor. HR 50-60s. BP stable. Palpable pulses. Trace LE edema. Pt on RA. POX 95-97%. Lung sounds audible. Pt practiced IS.
Abdomen soft/nontender. +BS. Pt voiding w/o issue. PIVx2 on left arm dc'd. Right forearm 20 gauge IV placed. Pt clipped and prepped for CVOR. Pt took 1st CHG shower. Pt instructed about NPO status starting @ midnight. Questions encouraged and
answered about surgery in AM. Heparin infusing as ordered. See worklist for full nursing assessment and interventions. Call woods within reach.
[2024-11-07] MEDS: TOPROL XL 12.5 MG PO (22:06)
--- NOTE | 2024-11-08 00:11 | PTCARENOTE ---
No change in assessment. Pt Sinus laureen on the tele monitor. HR 50s. BP stable. Pt on RA. POX 97%. No c/o pain at this time. Heparin infusing as ordered. Call woods within reach.
[2024-11-08] MEDS: HEPARIN 25000 UNITS/250 ML IV (02:59)
[2024-11-08 03:35] LABS: APTT 80.2 Sec (23.4-35.0)
[2024-11-08 03:41] LABS: % Basophils 0.4 % (0-2); % Eosinophils 2.2 % (0-6); % Immature Granulocytes 0.3 % (0-0.5); % Lymphocytes 32.6 % (20.5-51.1); % Monocytes 6.7 % (1.7-9.3); % Neutrophils 57.8 % (42.2-75.2); Absolute Eosinophils 0.2 10^3/uL (0-0.7); Absolute Lymphocytes 3.1 10^3/uL (1.2-3.4); Absolute Monocytes 0.6 10^3/uL (0.1-0.6); Absolute Neutrophils 5.5 10^3/uL (1.4-6.5); Hematocrit 44.2 % (39.0-52.0); Hemoglobin 15.1 g/dL (13.0-18.0); Mean Corp Hgb Conc. 34.2 g/dL (33.0-37.0); Mean Corpuscular Hgb 29.4 pg (27.0-31.0); Mean Platelet Volume 9.9 fL (7.4-10.4); Nucleated Red Blood Cells % 0 % (-); Platelet Count 207 10^3/uL (130-400); Red Blood Cell Count 5.14 10^6/uL (4.70-6.10); Red Cell Dist. Width 13.8 % (11.5-14.5); White Blood Cell Count 9.5 10^3/uL (4.8-10.8)
[2024-11-08 03:45] LABS: Blood Urea Nitrogen 20 mg/dl (9-20); Calcium 10.7 mg/dl (8.4-10.2); Carbon Dioxide 24 mmol/L (22-30); Chloride 102 mmol/L (98-107); Estimated Creatinine Clearance 98 ml/min; Glucose 99 mg/dl (70-99); Potassium 4.1 mmol/L (3.5-5.1); Sodium 135 mmol/L (135-145); eGFR > 60.00
[2024-11-08 05:48] VITALS: BP 127/77
[2024-11-08 06:39] VITALS: BMI 29.4
--- NOTE | 2024-11-08 07:22 | PTCARENOTE ---
2nd CHG shower taken. VS and weight obtained. Heparin infusing. Call woods within reach.
--- NOTE | 2024-11-08 07:28 | W.CVOR.SURPR ---
CVOR Surgeon Immed Pre Op
-
I have examined this patient prior to performance of the scheduled procedure.
The patient's condition is unchanged from the time of the dictated/written History and
Physical and the patient is able to undergo the scheduled procedure.
Sternotomy CABG x 2 (LAD and high Diag), LA MAZE, NIMCO Clip
[2024-11-08 08:49] VITALS: BP 129/91
[2024-11-08] MEDS: PROTONIX 40 MG PO (08:49)
[2024-11-08] MEDS: BACTROBAN 2% OINTMENT 1 APPLIC NASAL ×2 (08:49→19:56)
[2024-11-08] MEDS: MAGNESIUM OXIDE 500 MG PO (08:50)
[2024-11-08] MEDS: LOPRESSOR 12.5 MG PO (08:51)
--- NOTE | 2024-11-08 09:17 | CM ---
pt in OR today, cm to follow
[2024-11-08 09:37] VITALS: BP 137/80
--- NOTE | 2024-11-08 10:55 | PTCARENOTE ---
Patient transported via bed to OR.
[2024-11-08 11:41] LABS: ACT+ - POC 96 Seconds (82-134)
[2024-11-08 13:30] LABS: ACT+ - POC 571 Seconds (82-134)
[2024-11-08 13:44] LABS: Urine Albumin 1+ (Neg - Trace); Urine Bilirubin Negative (Negative); Urine Character Clear (Clear); Urine Color Yellow; Urine Glucose Negative (Negative); Urine Ketone Negative (Negative); Urine Leukocyte Negative (Negative); Urine Nitrite Negative (Negative); Urine Occult Blood 2+ (Negative); Urine Urobilinogen Negative (Neg - 1+)
[2024-11-08 13:45] LABS: B.E. - POC -0.6 mmol/L; Glucose - POC 104 mg/dl (70-99); HCO3 - POC 24 mmol/L (21-28); Hematocrit - POC 45 % PCV (42-52); Hemodilution- POC No; Hemoglobin Calculated - POC 15.4; Ionized Calcium - POC 1.34 mmol/L (1.15-1.33); O2 Saturation %Calculated-POC 99.7 % (94-98); PCO2 - POC 37 mmHg (35-48); PO2 - POC 202 mmHg (83-108); POC Comment PRE; Potassium - POC 4.2 mmol/L (3.5-5.1); Sodium - POC 137 mmol/L (136-145); Specimen Type - POC Arterial; pH - POC 7.41 (7.35-7.45)
[2024-11-08 13:54] LABS: ACT+ - POC 447 Seconds (82-134)
--- NOTE | 2024-11-08 13:59 | W.PN.UPDATE ---
Update Note
Progress Note Update
Attempted to see patient today but went for procedure. Post CABG medicine team will sign off. Please call us if any questions.
[2024-11-08 14:07] LABS: ACT+ - POC 492 Seconds (82-134)
[2024-11-08 14:08] LABS: B.E. - POC 2.1 mmol/L; Glucose - POC 135 mg/dl (70-99); HCO3 - POC 28 mmol/L (21-28); Hematocrit - POC 36 % PCV (42-52); Hemodilution- POC Yes; Hemoglobin Calculated - POC 12.2; Ionized Calcium - POC 1.24 mmol/L (1.15-1.33); O2 Saturation %Calculated-POC 99.8 % (94-98); PCO2 - POC 46 mmHg (35-48); PO2 - POC 230 mmHg (83-108); POC Comment CPB; Potassium - POC 5.1 mmol/L (3.5-5.1); Sodium - POC 137 mmol/L (136-145); Specimen Type - POC Arterial; pH - POC 7.39 (7.35-7.45)
[2024-11-08 14:26] LABS: Urine Mucus Many
[2024-11-08 14:27] LABS: Urine Amorphous Seen
[2024-11-08 14:29] LABS: Urine White Cell 0-2 /HPF (0-5)
[2024-11-08 14:38] LABS: B.E. - POC 0.4 mmol/L; Glucose - POC 173 mg/dl (70-99); HCO3 - POC 25 mmol/L (21-28); Hematocrit - POC 42 % PCV (42-52); Hemodilution- POC Yes; Hemoglobin Calculated - POC 14.4; Ionized Calcium - POC 1.25 mmol/L (1.15-1.33); O2 Saturation %Calculated-POC 99.9 % (94-98); PCO2 - POC 40 mmHg (35-48); PO2 - POC 264 mmHg (83-108); POC Comment WARM; Potassium - POC 5.7 mmol/L (3.5-5.1); Sodium - POC 135 mmol/L (136-145); Specimen Type - POC Arterial
[2024-11-08 14:44] LABS: ACT+ - POC 101 Seconds (82-134)
[2024-11-08] MEDS: TOPROL XL PO (14:47)
[2024-11-08] MEDS: UROCIT-K PO (14:47)
[2024-11-08] MEDS: LOW STRENGTH ASPIRIN PO (14:47)
[2024-11-08 14:48] LABS: B.E. - POC -0.3 mmol/L; Glucose - POC 142 mg/dl (70-99); HCO3 - POC 25 mmol/L (21-28); Hematocrit - POC 40 % PCV (42-52); Hemodilution- POC Yes; Hemoglobin Calculated - POC 13.6; Ionized Calcium - POC 1.48 mmol/L (1.15-1.33); O2 Saturation %Calculated-POC 99.9 % (94-98); PCO2 - POC 41 mmHg (35-48); PO2 - POC 308 mmHg (83-108); POC Comment POST; Potassium - POC 4.6 mmol/L (3.5-5.1); Sodium - POC 137 mmol/L (136-145); Specimen Type - POC Arterial; pH - POC 7.39 (7.35-7.45)
[2024-11-08] MEDS: ZYLOPRIM PO (14:48)
[2024-11-08] MEDS: TYLENOL PO (14:59)
[2024-11-08] MEDS: NEURONTIN PO (15:13)
--- NOTE | 2024-11-08 15:15 | CON.INTV ---
Consultation
Consultation Request
Date/Time Consultation Requested: 11/08/2024
Date/Time Consultation Performed: 11/08/2024
Requesting Provider: Dr. Zavala
Performing Provider: Dr. Taurus Mcgregor
Reason for Consultation: Status post coronary artery bypass
Medical History
-
History of Present Illness:
64-year-old man with past medical history significant for atherosclerotic cardiovascular disease, hyperlipidemia who came to the hospital complaining of palpitations and shortness of breath, found to be on atrial fibrillation with rapid ventricular
response in the emergency room. EKG was concerning for-ST elevation myocardial infarction.
Patient underwent cardiac catheterization 11/05/2024: Demonstrated preserved ejection fraction, complex ruptured plaque in the mid LAD unsuccessful intervention percutaneously. CT surgery evaluated patient and she was deemed candidate for
revascularization.
Surgery underwent on 11/08/2024 without complications.
Patient was transferred to the critical care cardiovascular ICU, we were consulted for postoperative care.
Currently on mechanical ventilation.
Chest tube in place without excessive drainage.
Past Medical History
Past Medical History: Other (See assessment and plan)
Social History
Tobacco: Non-smoker
Alcohol: Occasional
Drug: None
Family History
Family History: Reviewed & Not Pertinent
Allergies / Home Medications
Allergies
Allergy/AdvReac Type Severity Reaction Status Date / Time
Krjhbny-KVA-AuL Reductase Allergy Anaphylaxis Verified 11/07/24 21:34
Inhibitor
sulfamethoxazole Allergy Itching Verified 11/07/24 21:34
[From Bactrim]
trimethoprim [From Bactrim] Allergy Itching Verified 11/07/24 21:34
Home Medications
�Medication �Instructions �Recorded �Confirmed �Last Taken �Type
alirocumab 75 mg/mL subcutaneous 75 mg SC Q2W Antilipemic Agent, 11/05/24 11/05/24 1 Week Ago History
pen injector ~10/29/24
aspirin 81 mg chewable tablet 81 mg PO DAILY Blood Clot 11/05/24 11/05/24 11/05/24 History
Prevention/Tx 0100
Review of Systems
-
Unable to Obtain full review of systems at this time due to: Patient Intubation
Vitals / Labs / Diagnostic Testing
Vital Signs
Temp Pulse Resp BP Pulse Ox
98.5 F 56 16 137/80 95
11/08/24 05:48 11/08/24 10:00 11/08/24 05:48 11/08/24 09:37 11/08/24 05:48
Laboratory Results
11/08/24
03:05
APTT 80.2 H
Diagnostic Testing:
Physical Exam
-
HEENT: Normocephalic
Cardiovascular: S1/S2
Respiratory: Clear, Non-Labored Respirations and Other ( chest tube in place: No excessive drainage. No airleak)
GI: Soft, Non Distended and Other ( Shepherd in place with blood-tinged urine)
Neurology: Other (Already following commands.) and Other (Lethargic, mechanical ventilation, sedated)
Skin: Warm
General: Comfortable
Assessment
-
64-year-old man with past medical history noted. Admitted with ST elevation myocardial infarction. Found to have complex disease on catheterization not amenable for PCI. CT surgery evaluated patient and deemed candidate for surgical
revascularization. Underwent coronary artery bypass 11/08/2024, transferred to the critical care unit for further care.
Status post coronary artery bypass 11/08/2024 Dr. Zavala
Coronary artery bypass x 2, left atrial maze, left atrial appendage exclusion.
Postoperative mechanical ventilation
Postoperative anemia
Atrial fibrillation new this admission
Hypercalcemia
Conditions present prior admission:
ST elevation myocardial infarction this admission 11/05/2024
Coronary artery disease diagnosed this admission: Echocardiogram with normal LVEF. No significant valvular abnormalities.
Left heart catheterization 11/05/2024-complex LAD disease. Unsuccessful PCI
Hyperlipidemia
Obesity
Assessment and plan:
He is doing well postop-currently on mechanical ventilation and appears comfortable.
ABG reviewed: Adequate oxygenation and ventilation.
Continue SIMV mode with no change
Spontaneous breathing trial per protocol once sedation wears off. Already following commands.
Anemia noted-no evidence of acute bleeding
Follow H&H serially
Hemodynamics -acceptable currently off vasopressin
Arterial line in place
Adequate urinary output with mild hematuria already clearing.
Follow renal function
Chest tube with no excessive drainage-no air leak.
Chest x-ray reviewed: Pending
Remain nothing by mouth
Head of the bed elevation
Glycemic control per protocol
DVT prophylaxis when safe from the surgical perspective.
Critical care statement: A total of 31 minutes of critical care time was provided for this patient today. This includes management of unstable vital signs, evaluation of the patient at bedside, reviewing the patient's pertinent medical records
including ventilator settings, arterial blood gases, radiographs, microbiology, laboratory evaluations and discussion with primary team, critical care nursing, and respiratory therapy.
--- NOTE | 2024-11-08 15:17 | W.PN.CT.SURG ---
CT Surgery Operative Note
-
CARDIAC SURGERY OPERATIVE REPORT
Preoperative Diagnosis: Single Vessel Coronary Artery Disease with Atrial Fibrillation and STEMI
Postoperative Diagnosis: Same
Procedure(s) Performed:
1. Standard sternotomy with aortic and right atrial cannulation
2. Coronary artery bypass grafting x 2 (In situ MCMAHON to LAD, Ao to RSVG to high diagonal)
3. Small incision vein harvesting of RLE
4. Left atrial maze [posterior wall isolation with encompass clamp]
5. Left atrial appendage exclusion [45 mm clip]
6., Transesophageal echocardiography
Date of Surgery: 11/08/2024
Comorbidities:
1. ACS�STEMI
2. Hyperlipidemia
3. Hypertension
4. Atrial fibrillation with rapid ventricular response
5. Obese
Attending Surgeon: Ishmael Zavala MD, MS
Assistants: Kassy Li PA-C (present and necessary to acute care nursing assistant, endoscopic vein harvest, retraction, suction, exposure, suture management, and wound closure under my direction)
Anesthesiology: Jens Lau MD and Nelida Esparza CRNA
Scrub and Circulating RNs: Ijeoma Fowler RN, Arabella Ma RN
Office Messenger Helper: Oleg Sousa CCP
Anesthesia: GETA
EBL: per perfusion records
Products: None
CPB Time: 53 minutes
Aortic Cross Clamp Time: 30 minutes
Indication(s) for Procedures: This is an otherwise 64-year-old male who presented to the hospital with indigestion type pain while sleeping at night. In the emergency department he was found to have atrial fibrillation with rapid ventricular
response. He also had an EKG that demonstrated ST elevation. He was brought to the [facility] and he was found to have a plaque rupture at the bifurcation of a large diagonal vessel and the proximal LAD. Attempts to cross this with a wire were
unsuccessful during PCI and so he was referred to surgery. Given his history of atrial relation he was also counseled about the stroke risks and concomitant ablation with left atrial appendage management at time of surgery. His STS was reviewed,
shared decision making was to move forward with surgery.
Conduit(s) Quality:
MCMAHON - Excellent / Skeletonized
RSVG - Excellent / Uniform, no varicosities
Target(s) Quality:
Dx -good quality and large caliber vessel/excellent flow with a mean flow of approximately 80 cc a minute at a pressure of 80 mmHg, flow probe assessment with a mean flow of approximately 30 with a pulsatility index of less than 5
LAD -very large caliber distal target of approximately 2 mm with eccentric plaque after the area of myocardial bridge/good visual flow in the LAD territory with release of the bulldog clamp, there was a mean flow of in the teens with a pulsatile
index of approximately 4
Findings: Left ventricular ejection fraction preoperatively was 60% with no regional wall motion abnormalities. Following surgery his EF remained the same at 60% with no new regional wall motion abnormalities. The MCMAHON was harvested in a skeleton
fashion. Following bypass grafting, test dose cardioplegia was given down each distal and confirmed patency and hemostasis. The vein graft was tested with antegrade cardioplegia and demonstrated excellent mean flow at a pressure of 80 mmHg. All
grafts were assessed with flow probe and acceptable flows. Given his history of atrial fibrillation, and ACS, he had an elevated [id number] score and so left atrial posterior wall isolation with the encompass clamp was performed with 3 successful
pairs of ablation. The left atrial appendage also verified to be free of any thrombus or debris preoperatively and found to be totally occlusive postoperatively. Coming off of cardiopulmonary bypass he did not require any inotropic support. He
did have a brief period of SVT and spontaneously cardioverted. After this he did require a period of AV pacing but then regained his [place] sinus rhythm. No blood products were required, no significant inotropic support was necessary.
Description of Procedure: The patient was taken to the operating room. Their identity and procedure to be performed were verified and they were positioned supine on the operating table. Induction via general anesthesia with endotracheal intubation
was performed and central venous access and arterial monitoring were inserted. A preoperative transesophageal echocardiogram was performed to assess cardiac function and valvular function. The patient was then prepped and draped from chin to feet in
a sterile fashion. A preoperative time-out was performed with all members of the team present. A midline chest incision was performed along with median sternotomy. Simultaneous access of the right lower extremity for saphenous vein harvest was
obtained along with administration of an initial 5,000 units of IV heparin. A RulTract sternal retractor was positioned to exposure the left internal mammary bed. The mammary was harvested and found to have good flow. A bulldog clamp was applied to
the distal end of the mammary after dividing it. It was wrapped in a papaverine soaked RayTec and replaced back into the left hemithorax. The RulTract was exchanged for a median sternal retractor. The innominate vein was isolated. Full
heparinization was given (a total of 55,000 units). We created a pericardial well. The aortic cannulation site was chosen where it was soft, pliable, and free of calcium. Cannulation was performed with an arterial cannula in the ascending aorta and
a triple-stage venous cannula through the right atrial appendage. The arterial cannula line had an appropriate bounce and correlating pressures with test dosing. Next, a root vent/antegrade cannula was inserted into the ascending aorta. The ACT was
confirmed to be over 400 and retrograde autologous priming was performed before commencing cardiopulmonary bypass. At this point the SVC was then off of the RPA. The oblique sinus was developed. The encompass clamp was passed across the
transverse sinus and oblique sinus beneath the SVC and IVC and 3 successful pairs of ablations were performed. The pulmonary artery was away from the aorta to facilitate a clamp site. The aortic cross-clamp was placed after decreasing the
flow on the bypass and mean arterial pressure. A total of 800cc initial dose of antegrade [place]-Nido cardioplegia solution was given and planned for re-dosing every 75 minutes as necessary. There was rapid electro-mechanical arrest of the heart at 200
cc of cardioplegia. The left ventricle was observed for distention on echocardiogram and manual palpation. Cold slush was placed into a sponge and topically on the RV while we systemically cooled to 34 degrees centigrade. The heart was then rotated
medially and the ligament of [place] was divided. The left atrial appendage was sized to a 45 mm clip which was then deployed flush to the base.
I positioned the heart to expose the high diagonal vessel. A lower [place] blade was used to expose the coronary and perform the arteriotomy. Coronary Torres scissors were used to enlarge the incision. The saphenous vein was trimmed and beveled to an
appropriate size. The distal anastomosis was performed using 7-0 prolene in an end-to-side fashion. Antegrade cardioplegia was administered into the graft. Appropriate hemostasis and flow were confirmed. The graft was measured for length to the
aorta and cut. A suitable target on the mid/distal left anterior descending was identified after the area of the myocardial bridge. We dissected and prepared the distal target in a similar fashion. We retrieved the MCMAHON from the chest and created a
pericardial opening while being cognizant of the phrenic nerve to facilitate the course of the mammary. The distal end of the mammary was prepped and beveled to size. We verified orientation and length of the BUCK and found brisk flow. An end-to-side
anastomosis was created with a 7-0 prolene. We temporarily released the bulldog clamp on the mammary to inspect flow. Perfusion to the LAD territory was visualized and hemostasis was confirmed. The bull clamp was replaced on the mammary. The heart
was filled and the root was distended with antegrade cardioplegia to make final assessment of graft length and orientation. We created 1 aortotomy using a #11 blade then a 4.0mm aortic punch. The proximal anastomoses were created in an end-to-side
fashion using 6-0 prolene. At the the same time, we re-warmed to 36.5 degrees centigrade. The bulldog clamp was removed from the mammary. Temporary bipolar ventricular pacing wires were placed on the base of the right ventricle. The patient was
placed in a Trendelenburg position and flows on bypass were lowered. The aortic cross clamp was removed and flows were slowly brought back up. All bypass grafts were inspected and were free from kinking or twisting. The distal and proximal
anastomoses appeared hemostatic. Once transesophageal echocardiography appeared satisfactory for de-airing, the flows were temporarily lowered for root vent removal. After verifying acceptable parameters, we initiated weaning from cardiopulmonary
bypass. Once we were off cardiopulmonary bypass, the venous cannula was clamped and removed. He had a brief episode of SVT which spontaneously cardioverted. Due to this, I placed atrial pacing wires at the right atrium SVC junction. A test dose
of protamine was administered and the patient was monitored for any adverse reaction before resuming protamine. Once half of the protamine dose was delivered, pump suckers were turned off and the systolic blood pressure was lowered for aortic
decannulation. The aortic cannula was removed and pursestrings were tied down. All cannulation sites were oversewn with a 4-0 prolene. The mammary bed was inspected and hemostasis was confirmed. Once the mediastinum was hemostatic, 19Fr Humble drain
was placed in the left pleural cavity and two 24Fr Humble drains were placed within the pericardium. The sternum was approximated with 4 #7 single and 3 #8 double stainless steel wires. Fascia was approximated with #1 vicryl suture. The subcutaneous,
dermis and epidermis were closed in layers in a running fashion. The skin wound was cleansed and dressed.
All instrument, sponge, and needle counts were confirmed to be correct x 2 at the end of the operation. The patient was transferred to the cardiac intensive care unit in critical but stable condition.
I, Dr. Ishmael Zavala, was present, scrubbed for, and performed all critical elements of this procedure.
Ishmael Zavala MD, MS
Cardiothoracic Surgeon
[facility]
This operative dictation was created using the [employer] dictation system. Please excuse any grammatical, typographical, or 'sound alike' errors
[2024-11-08 15:39] LABS: Glucose - Point of Care 130 mg/dl (70-99)
[2024-11-08 15:40] VITALS: BP 72/51
[2024-11-08] MEDS: LR 250 ML IV ×2 (15:45→17:36)
[2024-11-08] MEDS: ANCEF 10 IV ×2 (15:48)
[2024-11-08 15:49] LABS: B.E. -0.3 mmol/L; HCO3 24.1 mmol/L (21-28); O2 Saturation % 99.1 % (94-98); PCO2 38 mmHg (35-48); PO2 113 mmHg (83-108); Potassium 4.1 mMOL/L (3.5-5.1); Sodium 131 mMOL/L (136-145); pH 7.41 (7.35-7.45)
[2024-11-08] MEDS: NSS 500 IV (15:49)
[2024-11-08 16:00] LABS: INR 1.21; PT 15.9 Sec (11.4-14.6)
[2024-11-08 16:02] LABS: Glucose - Point of Care 117 mg/dl (70-99)
[2024-11-08 16:02] LABS: Hematocrit 39.2 % (39.0-52.0); Hemoglobin 13.6 g/dL (13.0-18.0); Platelet Count 157 10^3/uL (130-400)
[2024-11-08 16:08] LABS: Blood Urea Nitrogen 17 mg/dl (9-20); Estimated Creatinine Clearance 88 ml/min; Glucose 130 mg/dl (70-99); Magnesium 3.3 mg/dl (1.6-2.3)
--- NOTE | 2024-11-08 16:20 | PTCARENOTE ---
Patient received from [facility] s/p CABG x 2/MAZE/LAAL. NSR via cm, SaO2 @ 97% on ventilator, titrating FiO2 as able. RIJ Cordis/Slic catheter present w/CVP transduced, L radial arterial line present - leveled, flushed, and calibrated w/good waveforms
returned. Mediastinal chest tubes x 2 (Y-connected), L pleural chest tube (to seperate Pleurevac), both placed to -20cm suction w/no air leaks noted. Shepherd catheter to gravity, pink tinged. All procedural sites stable. Labs drawn, EKG performed,
pcxr obtained. Dr. Zavala to bedside, updated. See work list for full assessment, interventions performed, and intravenous infusions and titrations.
[2024-11-08 17:00] LABS: Glucose - Point of Care 142 mg/dl (70-99)
[2024-11-08] MEDS: OFIRMEV 100 IV (17:03)
--- NOTE | 2024-11-08 17:07 | W.PN.CD ---
Today's Communication / Plan
-
wean sedation
extuabation when able
levophed wean as able
Impression / Plan
-
STEMI:
-this diagnosis is threat to life
-cath 11/05/24: Complex ruptured plaque in the mid LAD involving the origin of the second diagonal branch and mid to distal LAD. Unsuccessful attempt to cross the highly eccentric segment in the mid LAD and the procedure was terminated. Preserved
LV systolic function noted.
-CT surgery is consulted --- s/p Coronary artery bypass grafting x 2 (In situ MCMAHON to LAD, Ao to RSVG to high diagonal) 11/08/24
-weaning a small dose of levophed post op
-He is on Praluent injection. Increased to 150 mg every 2 weeks. Zetia 10 mg daily added.
AFIB with RVR, paroxysmal:
-s/p Left atrial maze [posterior wall isolation with encompass clamp] & Left atrial appendage exclusion [45 mm clip] 11/08/24
-now in SR
-continue BB, decreased to 25 mg BID
-[id number] score is 2 for CAD and age
-resume DOAC when able
Dyslipidemia:
-plan as above
Subjective:
intubated and waking slowly immediately post op
Data:
TTE 11/07/24 CONCLUSIONS
Normal left ventricular size and systolic function. No regional wall motion
abnormalities are seen.
LV ejection fraction is 64% by volumetric assessment.
Mild concentric left ventricular hypertrophy. Normal diastolic function.
Normal right ventricular size and function.
No significant valvular disease.
Right heart pressures could not be determined.
No prior study available for comparison.
CCT 31 minutes
Physical Exam
Vital Signs/Labs
Vital Signs
Temp Pulse Resp BP Pulse Ox
97.5 F 75 14 72/51 100
11/08/24 17:00 11/08/24 17:00 11/08/24 17:00 11/08/24 15:40 11/08/24 17:00
11/07/24 11/08/24 11/09/24
06:59 06:59 06:59
Actual Weight 106.7 kg
11/08/24 15:33
PT 15.9 Sec (11.4-14.6) H 11/08/24 15:33
INR 1.21 11/08/24 15:33
APTT 31.0 Sec (23.4-35.0) 11/08/24 15:33
Magnesium 3.3 mg/dl (1.6-2.3) H 11/08/24 15:33
Triglycerides 159 mg/dl (10-149) H 11/06/24 02:41
LDL Cholesterol, Calc 111 mg/dl 11/06/24 02:41
VLDL Cholesterol, Calc 31 mg/dl (0-30) H 11/06/24 02:41
HDL Cholesterol 39 mg/dl 11/06/24 02:41
11/05/24
02:20
Rau-L-Brtduahjsej Pept 87.5
LAB Results
11/05/24 11/06/24 11/06/24
17:23 12:35 17:15
Troponin I 5.200 H* D 2.460 H* Cancelled
11/07/24
01:00
Troponin I Cancelled
Physical Exam
Constitutional: No acute distress
Cardiovascular: Rhythm & rate is regular, Pedal edema is absent, Systolic murmur absent and Diastolic murmur absent
Respiratory: Respiratory effort normal, Lungs clear to auscul., Wheeze Absent, Crackles Absent and Other (intubated)
Neuro/Psych: Other (sedate)
Data Reviewed
-
Date of Service: November 08, 2024
EKG: Tracing Personally Visualized and interpreted (yoli knight) and Other (tele sinus)
--- NOTE | 2024-11-08 17:12 | W.PN.UPDATE ---
Addendum entered and electronically signed by SAMUEL Alejandro 11/08/24 17:49:
NO blood products received intra-op
Original Note:
Update Note
Progress Note Update
64-year-old male with past medical history of CAD and hyperlipidemia presented to [facility] on 11/05 with symptoms of palpitations and mild shortness of breath. He was found to be in A-fib with rapid ventricular response with ST
elevations in the lateral leads. A STEMI alert was called and patient converted to sinus rhythm around 7:30 AM. Patient was Brilinta loaded in the ER. Patient was taken to the cardiac [facility] and was found to have a complex ruptured plaque of
the mid LAD which also involve the second diagonal branch. PCI was unsuccessful, therefore, proceeded with CABG
IV fluids: 2000
U.O.:� 600
Blood:� 2 plts in OR
Wires:� atrial and ventricular
Inotropes:� none
Pressors:� Levophed @ 1
Sedatives:�Precedex @ 0.5
�
NEURO: sedated on Precedex, pupils +2mm B/L
RESP: #8OT @24cm> 500/60%/14/5. Lungs clear B/L. 2 mediastinal (25cc on arrival) and one L pleural (40cc on arrival) chest tubes to -20cm suction. Sanguineous drainage
CV: RRR +S1, S2, no S3, no�rub, no murmur. Dermabond to median sternotomy. RIJ w/o [place] intact
ABD: round, soft, no BS
EXT: no edema, +2/4 DP pulses B/L, no femoral bruit, RLE DAMON wrap intact; radial A-line intact
: Shepherd with clear yellow urine
�
A/P: POD #0 s/p CABG x 2 (MCMAHON to LAD, SVG-diagonal), left atrial maze, and left atrial appendage exclusion [#45 mm clip]
OLLIE: Report pending
- wean and extubate
�
# CAD/STEMI
- will require ASA/Plavix, beta asuncion, ACEI
�
# Hyperlipidemia
-anaphylaxis to statin>continue Praluent 75mg SC q 2 weeks
# [place] atrial fibrillation on admission
- currently sinus rhythm
- Amiodarone prophylaxis
[2024-11-08 18:00] LABS: Glucose - Point of Care 125 mg/dl (70-99)
[2024-11-08 18:10] VITALS: BP 108/81
[2024-11-08 18:31] LABS: B.E. -0.7 mmol/L; HCO3 23.4 mmol/L (21-28); O2 Saturation % 99.9 % (94-98); PCO2 36 mmHg (35-48); PO2 165 mmHg (83-108); Potassium 3.7 mMOL/L (3.5-5.1); pH 7.42 (7.35-7.45)
[2024-11-08] MEDS: KCL 50 IV ×2 (18:47→19:56)
[2024-11-08] MEDS: DILAUDID 0.25 MG IV (18:47)
[2024-11-08 19:08] LABS: Glucose - Point of Care 113 mg/dl (70-99)
--- NOTE | 2024-11-08 19:45 | PTCARENOTE ---
Received patient at 1900 from day shift RN. Patient awake but drowsy, AOx3, following commands; baseline neuropathy in LEs. SR with RBBB on the monitor, AV wires present connected to temporary pacemaker, DDD 40/10/0.5/2, patient's intrinsic rate in
the 70's, trace hand edema, weakly palpable pulses throughout. On 6LNC satting 98-100%, breaths shallow, lungs dim at the bases, med x2 and L pleural CTs to wall suction present draining sanguinous drainage; no air leak, tidaling, or crepitus noted.
BS present, hypoactive, abdomen SNT. Shepherd catheter in place draining red-tinged urine. All surgical sites CDI. PIV x1 in R forearm, L art line present, RIJ Cordis with slic, all lines leveled and zeroed. On insulin and levo. Potassium repleting on
shift change. Patient made comfortable, some complaints of 5/10 pain in his L chest, managed with PRN medications, see MAR. See worklist for nursing intervention details.
[2024-11-08 19:53] LABS: Hemoglobin 14.2 g/dL (13.0-18.0); Platelet Count 230 10^3/uL (130-400)
[2024-11-08 20:05] LABS: Glucose - Point of Care 134 mg/dl (70-99)
[2024-11-08] MEDS: NSS 250 IV (20:10)
[2024-11-08 20:23] VITALS: BP 87/60
[2024-11-08 21:03] LABS: Glucose - Point of Care 107 mg/dl (70-99)
[2024-11-08] MEDS: LOW STRENGTH ASPIRIN 81 MG PO (21:08)
[2024-11-08] MEDS: FLEXERIL 5 MG PO (21:12)
[2024-11-08] MEDS: SENOKOT-S 1 TABLET PO (21:12)
[2024-11-08] MEDS: ANCEF 5 IV (22:25)
[2024-11-08] MEDS: CALCIUM GLUCONATE 100 IV (22:25)
[2024-11-08] MEDS: TYLENOL 1000 MG PO (22:25)
[2024-11-08] MEDS: NEURONTIN 100 MG PO (22:25)
[2024-11-08 23:04] LABS: Glucose - Point of Care 105 mg/dl (70-99)
[2024-11-08] MEDS: ROXICODONE 5 MG PO (23:08)
[2024-11-09] VITALS (18 sets, daily range): BP systolic 76–141; BP diastolic 48–79; BMI 29.9
--- NOTE | 2024-11-09 | PTCARENOTE ---
Patient tolerating ice chips, able to take PO medications as prescribed. Given PRN pain medication, see JAN. Levo adjusted per protocol. Assessment unchanged.
[2024-11-09 01:09] LABS: Glucose - Point of Care 112 mg/dl (70-99)
[2024-11-09] MEDS: ROXICODONE 5 MG PO (03:08)
[2024-11-09 03:16] LABS: Glucose - Point of Care 95 mg/dl (70-99)
--- NOTE | 2024-11-09 04:07 | W.PN.CT ---
Today's Communication / Plan
-
Plan:
-No major issues overnight. Hemodynamically and neurologically intact
-Pt successfully extubated yesterday 11/08 @ 1840
-Weaned off Levophed overnight, remains on insulin gtt per protocol
-No swan, U/O since OR 1640 mL
-Monitor chest tube output: 2meds 170/270, L pleural 100/180
-AM cxr is pending
-Cont. current meds (ASA, Plavix, Amiodarone, Lopressor- will likely hold AM dose, Alirocumab; will start DOAC on POD#4 given A-fib hx/MAZE)
-Will place mag oxide on hold, mg 2.5
-D/C'd SLIC and a-line @ 0530
-D/C duncan catheter @ 0600
-Transfer to [facility] phase today when off insulin gtt per protocol
-Maintain cordis
-Maintain temporary PW (will d/c before discharge home)
-Wean off of O2 as tolerated
-Encourage use of IS
-OOB into chair/Ambulate
Assessment / Plan
-
Assessment:
-S/P Standard sternotomy with aortic and right atrial cannulation/ CABG x 2 (In situ MCMAHON to LAD, Ao to RSVG to high diagonal)/Small incision vein harvesting of RLE/Left atrial maze [posterior wall isolation with encompass clamp]/ Left atrial
appendage exclusion [45 mm clip], 11/08/24, pod#1
-Single vessel CAD involving the mid LAD S/P unsuccessful attempted PCI, 11/05/24
-Anterior STEMI
-USA
-LVEF 64%
-Brilinta washout
-Hyperlipidemia (statin intolerance, on Alirocumab @ home)
-Hypertension
-New onset Atrial fibrillation with rapid ventricular response
-Class 1 obesity (BMI 30)
-Renal calculi
-BPH
-LE neuropathy d/t viral infection
-S/P Recent left thumb cyst removal by Dr. Campbell
-S/P Inguinal hernia repair 60 years ago
-Acute postop blood loss/Anemia (stable without blood transfusion)
-Acute postop hematuria (resolved)
-Acute postop atelectasis
-Acute postop hypovolemia with subsequent hypervolemia
-EKG c/w acute postop pericarditis (+rub, not in excruciating pain)
Discussed patient care with: Cardiology, Nursing, Respiratory Therapy, Pharmacy and Care Team
Subjective
Procedure
S/P Standard sternotomy with aortic and right atrial cannulation/ CABG x 2 (In situ MCMAHON to LAD, Ao to RSVG to high diagonal)/Small incision vein harvesting of RLE/Left atrial maze [posterior wall isolation with encompass clamp]/ Left atrial
appendage exclusion [45 mm clip], 11/08/24
-
Date of Service: November 09, 2024
Pt c/o incisional/left shoulder pain, otherwise feels well
Objective Data
-
PT 15.9 Sec (11.4-14.6) H 11/08/24 15:33
INR 1.21 11/08/24 15:33
APTT 31.0 Sec (23.4-35.0) 11/08/24 15:33
Vital Signs
Vital Signs
Temp Pulse Resp BP Pulse Ox
99.9 F 64 17 87/60 99
11/09/24 03:00 11/09/24 01:58 11/09/24 01:58 11/08/24 20:23 11/09/24 03:00
CT Intake/Output/Weight
11/08/24 11/08/24 11/09/24
06:59 18:59 06:59
Intake Total 136 / 536 690.1 / 2209.3 1519.2 / 2209.3
Output Total 980 / 1860 880 / 1860
Balance 136 / 536 -289.9 / 349.3 639.2 / 349.3
SaO2: 99 (2L)
Physical Exam
-
General: Awake, Oriented and AOx3
Cardiovascular: Regular rate & rhythm, No Murmurs and Rub (likely d/t acute pericarditis)
Respiratory: Decreased Breath Sounds (at bases, otherwise clear)
Sternum: Stable
Incision: Clean, Dry, Intact and Dressing Intact
Extremities: Other (+trace edema)
Data Reviewed
-
Lab Results: Results Reviewed
Medications: Active Meds Reviewed
Chest X-Ray: Report Reviewed and Image Reviewed
ECG: Report Reviewed and Image Reviewed
[2024-11-09 04:24] LABS: Hematocrit 39.6 % (39.0-52.0); Hemoglobin 13.5 g/dL (13.0-18.0); Mean Corp Hgb Conc. 34.1 g/dL (33.0-37.0); Mean Corpuscular Hgb 29.8 pg (27.0-31.0); Mean Corpuscular Volume 87.4 fL (80.0-94.0); Mean Platelet Volume 9.8 fL (7.4-10.4); Platelet Count 202 10^3/uL (130-400); Red Blood Cell Count 4.53 10^6/uL (4.70-6.10); Red Cell Dist. Width 14.2 % (11.5-14.5); White Blood Cell Count 16.1 10^3/uL (4.8-10.8)
[2024-11-09 04:47] LABS: Blood Urea Nitrogen 22 mg/dl (9-20); Calcium 9.7 mg/dl (8.4-10.2); Carbon Dioxide 23 mmol/L (22-30); Chloride 103 mmol/L (98-107); Estimated Creatinine Clearance 88 ml/min; Glucose 124 mg/dl (70-99); Magnesium 2.2 mg/dl (1.6-2.3); Potassium 4.5 mmol/L (3.5-5.1); Sodium 136 mmol/L (135-145); eGFR > 60.00
[2024-11-09 04:59] LABS: Glucose - Point of Care 120 mg/dl (70-99)
[2024-11-09] MEDS: TYLENOL 1000 MG PO ×3 (05:55→20:59)
[2024-11-09] MEDS: ANCEF 5 IV ×2 (06:38→13:17)
--- NOTE | 2024-11-09 06:42 | PTCARENOTE ---
Pain control throughout the night. Patient slept intermittently between care. Insulin gtt adjusted per protocol, BG controlled. Slic removed as well as L arterial line. No hematoma noted in L wrist, dressing CDI. EKG showed atrial
sending/ventricular pacing, temporary pacer settings adjusted by CVPA, follow-up EKG showed ST elevation, see reports. Attempted to get pt OOB, patient had near syncopal episode, placed safely back into bed and returned to baseline neuro function
after lying down. Dumped approx 50 mLs from mediastinal CTs. CVPA aware.
[2024-11-09 07:00] LABS: Glucose - Point of Care 117 mg/dl (70-99)
--- NOTE | 2024-11-09 07:15 | PTCARENOTE ---
Patient received from shift superintendent caustic cresylate resting in bed, sleepy but arousable, AAO x 3. NSR via cm, SaO2 @ 96% on 2lnc. RIJ Cordis w/kvo infusing. Epicardial A+V wires to pulse generator, no spikes noted. L pleural and mediastinal chest tubes x 2 (to
separate pleurevacs), no air leaks noted. Shepherd catheter d/c'd, DTV. All procedural sites stable. Insulin infusing peripherally, titrating per glycemic protocol. Patient updated to plan of care for the day, in agreement. See work list for full
assessment and interventions performed.
[2024-11-09 08:56] LABS: Glucose - Point of Care 110 mg/dl (70-99)
[2024-11-09] MEDS: BACTROBAN 2% OINTMENT 1 APPLIC NASAL ×2 (09:15→21:00)
[2024-11-09] MEDS: ZYLOPRIM 300 MG PO (09:16)
[2024-11-09] MEDS: PROTONIX 40 MG PO (09:16)
[2024-11-09] MEDS: PLAVIX 75 MG PO (09:16)
[2024-11-09] MEDS: MAGNESIUM OXIDE 500 MG PO ×2 (09:16→20:59)
[2024-11-09] MEDS: NEURONTIN 100 MG PO ×3 (09:16→20:59)
[2024-11-09] MEDS: SENOKOT-S 1 TABLET PO ×2 (09:17→20:59)
[2024-11-09] MEDS: COLCHICINE 0.3 MG PO (09:17)
[2024-11-09] MEDS: LOW STRENGTH ASPIRIN 81 MG PO (09:17)
[2024-11-09] MEDS: LIDOCAINE 4% PATCH TOPICAL (09:43)
--- NOTE | 2024-11-09 11:50 | PTCARENOTE ---
VS obtained, stable. Assisted oob to chair w/out issue. at bedside. Perusing menu for lunch.
[2024-11-09 12:49] LABS: Glucose - Point of Care 101 mg/dl (70-99)
[2024-11-09 12:49] LABS: Glucose - Point of Care 110 mg/dl (70-99)
--- NOTE | 2024-11-09 12:50 | PTCARENOTE ---
Pt rang call woods c/o feeling lightheaded. BP down in 70's while sitting in the chair. Feet elevated. CT GARDEN IMPLEMENT MECHANIC in room , Epicardial wire reattached and set to AAI 70. IVF bolus 250 ml administered also. BP improving with treatment. S/s resolved.
Will monitor closely.
--- NOTE | 2024-11-09 14:07 | W.PN.INTV ---
Today's Communication / Plan
Recommendations
Continue postoperative care
Daily chest x-ray
Monitor chest tube output
Follow H&H
Incentive spirometry encouraged
Cardiac management
Sign off
Assessment
-
64-year-old man with past medical history noted. Admitted with ST elevation myocardial infarction. Found to have complex disease on catheterization not amenable for PCI. CT surgery evaluated patient and deemed candidate for surgical
revascularization. Underwent coronary artery bypass 11/08/2024, transferred to the critical care unit for further care.
Status post coronary artery bypass 11/08/2024 Dr. Zavala
Coronary artery bypass x 2, left atrial maze, left atrial appendage exclusion.
Postoperative mechanical ventilation
Postoperative anemia
Atrial fibrillation new this admission
Hypercalcemia
Conditions present prior admission:
ST elevation myocardial infarction this admission 11/05/2024
Coronary artery disease diagnosed this admission: Echocardiogram with normal LVEF. No significant valvular abnormalities.
Left heart catheterization 11/05/2024-complex LAD disease. Unsuccessful PCI
Hyperlipidemia
Obesity
Assessment and plan:
Doing well postoperative day 1
Hemodynamically and neurologically intact
Encourage incentive spirometry
Increase mobility as able
Continue analgesia with as needed narcotics.
Hemoglobin is stable
Leukocytosis likely reactive
Hemodynamics -off vasoactive drugs
Adequate urinary output
Renal function is normal.
Chest tube with no excessive drainage-no air leak.
Chest x-ray reviewed 11/09/2024: No acute abnormalities.
Advance diet
Head of the bed elevation
Glycemic control per protocol
DVT prophylaxis when safe from the surgical perspective.
Patient has been transferred to telemetry. Critical care team will sign off.
Subjective Dataa
Subjective Data
Date of Service:
Date of Service: November 09, 2024
Chief Complaint: Motorcycle Police Officer Follow Up (Status post CABG)
Subjective:
Denies any significant plaints from overnight
Remained stable hemodynamically and neurologically intact.
Pain is controlled
Objective Data
Data Reviewed
Vital Signs / I&O / Oxygen:
Vital Signs
Temp Pulse Resp BP Pulse Ox
98.6 F 59 16 126/68 96
11/09/24 11:49 11/09/24 11:49 11/09/24 11:49 11/09/24 11:43 11/09/24 11:49
Intake and Output
11/08/24 11/09/24 11/10/24
06:59 06:59 06:59
Intake Total 536 / 536 2352.5 / 2352.5 710.4 / 710.4
Output Total 2195 / 2195 60 / 60
Balance 536 / 536 157.5 / 157.5 650.4 / 650.4
SaO2 [CPAP] 100
SaO2 [SIMV] 98
SaO2 96
Nasal Cannula flow liters per 2
minute
Physical Exam
General: Comfortable
HEENT: Normocephalic
Cardiovascular: S1-S2
Respiratory: Clear and Chest Tube (No air leak or excessive drainage)
GI: Soft and Non Distended
Neurology: Awake, Alert and Oriented
Skin: Warm
Labs/Micro/Reports
Lab Data
11/09/24 04:08
11/09/24 04:08
Laboratory Results
11/08/24 11/08/24
15:33 18:26
PT 15.9 H
INR 1.21
APTT 31.0
pH 7.41 7.42
pCO2 38 36
pO2 113 H 165 H
HCO3 24.1 23.4
O2 Delivery Level Fio2 40%
[2024-11-09 15:04] LABS: Glucose - Point of Care 140 mg/dl (70-99)
[2024-11-09] MEDS: NSS IV (15:19)
--- NOTE | 2024-11-09 15:30 | PTCARENOTE ---
PT voided 225 dark kaiser urine in urinal w/o issue. Assisted to bed post. VSS. HR remains paced at 70, bp tolerating. Rt leg pranay wrap removed at this time. Gycemic protocol discontinued at 24 hr nain per SHOTGUN SHELL ASSEMBLY MACHINE ADJUSTER order. Assessment otherwise unchanged
from prior
--- NOTE | 2024-11-09 16:51 | W.PN.ANS.POP ---
Anesthesia Post Operative
- Anesthesia Post Op Note
Vital Signs Stable-See Nursing Note: Yes
Airway Patent: Yes
Adequate Pain Control: Yes
Change in Mental Status: No
Current Postoperative Nausea & Vomiting: No
Anesthesia Complications: No
General Anesthetic Recall: No
Unplanned Admission: No
Post Op Hydration Adequate: Yes
--- NOTE | 2024-11-09 20:00 | PTCARENOTE ---
assumed care of patient @ 1900. received pt sitting in chair, AOx3. VSS. NSR with bundle branch block . +pulses, trace edema. AV wires set to AAI 50,10. BP stable. Lungs clear, diminished on 2L NC satting high 90s. IS 1250. 2 mediastinal chest tubes
to wall suction, no air leak, tidaling or crepitus noted. BS hypoactive, good appetite. Voiding kaiser urine. MSI CDI RN TRANSITIONAL with glue, R SVG and R groin with glue CDI SIM. R IJ cordis and PIV patent. pt assisted back to bed with steady gait, no
dizzyness, BP good. Pt resting comfortably with call woods within reach .
[2024-11-10] VITALS (20 sets, daily range): BP systolic 96–150; BP diastolic 50–85; PULSE 70; O2SAT 91–95
--- NOTE | 2024-11-10 | PTCARENOTE ---
naida given for pain. no change in asessment. call woods within reach
[2024-11-10] MEDS: ROXICODONE 5 MG PO ×2 (00:04→04:26)
[2024-11-10] MEDS: DILAUDID 0.25 MG IV (02:30)
[2024-11-10] MEDS: FLEXERIL 5 MG PO (04:26)
[2024-11-10 04:45] LABS: Ionized Calcium 1.35 mMOL/L (1.15-1.33)
--- NOTE | 2024-11-10 04:57 | PTCARENOTE ---
medicated for pain, see mar. no change in assessment, call woods within reach .
--- NOTE | 2024-11-10 05:05 | W.PN.CT ---
Today's Communication / Plan
-
Plan:
-No major issues overnight. Hemodynamically and neurologically intact
-Off all drips
-Has had one episode of orthostasis yesterday after OOB in the AM. BP soft postop, improving. BB and Amiodarone currently on hold
-Consider d/c of chest tubes: 2meds 130/210
-L pleural chest tube d/c'd yesterday without incident
-AM cxr with some atelectasis, otherwise clear on my review. F/U official report
-Cont. current meds (ASA, Plavix, Amiodarone, Lopressor- will likely hold AM dose, Alirocumab; will start DOAC on POD#4 for A-fib hx/MAZE)
-Diuresis if BP permits
-Monitor postop hyponatremia, 134
-Transfer to [facility] phase today when off insulin gtt per protocol
-Maintain cordis another day
-D/C temporary PW
-Wean off of O2 as tolerated
-Encourage use of IS
-OOB into chair/Ambulate
Assessment / Plan
-
Assessment:
-S/P Standard sternotomy with aortic and right atrial cannulation/ CABG x 2 (In situ MCMAHON to LAD, Ao to RSVG to high diagonal)/Small incision vein harvesting of RLE/Left atrial maze [posterior wall isolation with encompass clamp]/ Left atrial
appendage exclusion [45 mm clip], 11/08/24, pod#2
-Single vessel CAD involving the mid LAD S/P unsuccessful attempted PCI, 11/05/24
-Anterior STEMI
-USA
-LVEF 64%
-Brilinta washout
-Hyperlipidemia (statin intolerance, on Alirocumab @ home)
-Hypertension
-New onset Atrial fibrillation with rapid ventricular response
-Class 1 obesity (BMI 30)
-Renal calculi
-BPH
-LE neuropathy d/t viral infection
-S/P Recent left thumb cyst removal by Dr. Campebll
-S/P Inguinal hernia repair 60 years ago
-Acute postop blood loss/Anemia (stable without blood transfusion)
-Acute postop hematuria (resolved)
-Acute postop atelectasis
-Acute postop hypovolemia with subsequent hypervolemia
-EKG c/w acute postop pericarditis (+rub, not in excruciating pain)
-Acute postop orthostasis
-Acute postop hyponatremia, 134
Discussed patient care with: Cardiology, Nursing, Respiratory Therapy, Pharmacy and Care Team
Subjective
Procedure
S/P Standard sternotomy with aortic and right atrial cannulation/ CABG x 2 (In situ MCMAHON to LAD, Ao to RSVG to high diagonal)/Small incision vein harvesting of RLE/Left atrial maze [posterior wall isolation with encompass clamp]/ Left atrial
appendage exclusion [45 mm clip], 11/08/24
-
Date of Service: November 10, 2024
Pt c/o mild incisional pain, otherwise feels well
Objective Data
-
PT 15.9 Sec (11.4-14.6) H 11/08/24 15:33
INR 1.21 11/08/24 15:33
APTT 31.0 Sec (23.4-35.0) 11/08/24 15:33
Vital Signs
Vital Signs
Temp Pulse Resp BP Pulse Ox
99.1 F 68 16 135/71 97
11/10/24 04:00 11/10/24 04:30 11/10/24 04:00 11/10/24 04:24 11/10/24 04:00
CT Intake/Output/Weight
11/09/24 11/09/24 11/10/24
06:59 18:59 06:59
Intake Total 1662.4 / 2352.5 991.6 / 1571.6 580 / 1571.6
Output Total 1215 / 2195 565 / 1275 710 / 1275
Balance 447.4 / 157.5 426.6 / 296.6 -130 / 296.6
SaO2: 97 (2L)
Physical Exam
-
General: Awake, Oriented and AOx3
Cardiovascular: Regular rate & rhythm, No Murmurs, Rub (likely d/t acute postop pericarditis) and No Gallop
Respiratory: Decreased Breath Sounds (at bases, otherwise clear)
Sternum: Stable
Incision: Clean, Dry, Intact and Dressing Intact
Extremities: No Edema
Data Reviewed
-
Lab Results: Results Reviewed
Medications: Active Meds Reviewed
Chest X-Ray: Report Reviewed and Image Reviewed
ECG: Report Reviewed and Image Reviewed
[2024-11-10 05:28] LABS: Hematocrit 36.3 % (39.0-52.0); Mean Corp Hgb Conc. 33.1 g/dL (33.0-37.0); Mean Corpuscular Hgb 29.4 pg (27.0-31.0); Mean Platelet Volume 10.1 fL (7.4-10.4); Platelet Count 180 10^3/uL (130-400); Red Blood Cell Count 4.08 10^6/uL (4.70-6.10); Red Cell Dist. Width 14.3 % (11.5-14.5); White Blood Cell Count 18.7 10^3/uL (4.8-10.8)
[2024-11-10 05:49] LABS: Blood Urea Nitrogen 27 mg/dl (9-20); Calcium 9.5 mg/dl (8.4-10.2); Carbon Dioxide 30 mmol/L (22-30); Chloride 98 mmol/L (98-107); Estimated Creatinine Clearance 80 ml/min; Glucose 131 mg/dl (70-99); Magnesium 2.1 mg/dl (1.6-2.3); Potassium 4.4 mmol/L (3.5-5.1); Sodium 134 mmol/L (135-145); eGFR > 60.00
[2024-11-10] MEDS: TYLENOL 1000 MG PO ×3 (07:21→22:44)
--- NOTE | 2024-11-10 07:58 | W.PN.CD ---
Today's Communication / Plan
-
Encourage incentive spirometry.
Up to chair, ambulate if possible.
Chest tube/pain management per CT surgery.
Hold on diuresis at the moment.
Discuss utility of P2Y12i and DOAC.
Impression / Plan
-
Impression/Plan: 64 y/o male with HLD/statin intolerance and neuropathy admitted with AF/RVR and STEMI. Cardiac catheterization revealed complex, bifurcation lesion, ultimately unamenable to PCI, but STEMI aborted (ISELA III flow, no chest pain).
He was subsequently referred for urgent, inpatient CABG.
#CAD/Aborted STEMI:
-Acute, threat to life.
-Cath from 11/05/24 showed complex ruptured plaque in the mid LAD involving the origin of the second diagonal branch and mid to distal LAD. Unsuccessful attempt to cross the highly eccentric segment in the mid LAD and the procedure was terminated.
Preserved LV systolic function noted.
-Now s/p coronary artery bypass grafting x 2 (In situ MCMAHON to LAD, SVG to high diagonal) with Dr. Zavala, 11/08/24.
-Routine post operative management.
-Encourage incentive spirometry. BP is better so we should encourage him to be up to chair, ambulatory if possible.
-Pain/chest tube management per CT surgery.
-Patient has received clopidogrel as part of their post operative course. Discuss utility of P2Y12 inhibitor vs. therapeutic anticoagulation for new PAF.
#AFIB with RVR, paroxysmal:
-New diagnosis.
-Currently in NSR.
-Rate/rhythm control with left atrial MAZE [posterior wall isolation with encompass clamp]. Favor low dose metoprolol to guard against recurrence of RVR if he relapses into AF.
-CHADS2-VASC = 2 (Age x1, vascular disease).
-S/P LAAE (#40 Atriclip). Therapeutic anticoagulation when acceptable from a surgical standpoint. As above, discuss utility of P2Y12i and DOAC.
#Dyslipidemia/statin intolerance (myalgia)
-Chronic, stable.
-Total cholesterol = 181, LDL = 111, HDL = 39, Triglycerides = 159.
-Goal LDL < 55, Triglycerides < 150.
-Tolerating outpatient alirocumab. Ezetimibe 10 mg started.
-Repeat lipid panel in 3 months.
-He may benefit from outpatient icosapent ethyl.
Subjective/Interval History:
Hypotensive yesterday. Responded to IVF bolus and atrial pacing.
CT surgery suspects a degree of vasoplegia.
Weight is up 2.1 kg from ebony - this is likely necessary given his low SVR.
Hbg 12.0 <-- 13.5.
DATA:
TTE, 11/07/24:
CONCLUSIONS
Normal left ventricular size and systolic function. No regional wall motion
abnormalities are seen.
LV ejection fraction is 64% by volumetric assessment.
Mild concentric left ventricular hypertrophy. Normal diastolic function.
Normal right ventricular size and function.
No significant valvular disease.
Right heart pressures could not be determined.
No prior study available for comparison.
Cardiac Catheterization, 11/05/2024:
CONCLUSIONS
1. Complex ruptured plaque in the mid LAD involving the origin of the second diagonal branch and mid to distal LAD. I was unsuccessful while attempting to cross the highly eccentric segment in the mid LAD and the procedure was terminated.
2. Preserved LV systolic function.
Physical Exam
Vital Signs/Labs
Vital Signs
Temp Pulse Resp BP Pulse Ox
37.3 C 68 16 135/71 97
11/10/24 04:00 11/10/24 04:30 11/10/24 04:00 11/10/24 04:24 11/10/24 05:09
11/08/24 11/09/24 11/10/24
11:59 11:59 11:59
Actual Weight 106.7 kg 108.4 kg 108.8 kg
11/10/24 04:35
11/10/24 04:35
PT 15.9 Sec (11.4-14.6) H 11/08/24 15:33
INR 1.21 11/08/24 15:33
APTT 31.0 Sec (23.4-35.0) 11/08/24 15:33
Magnesium 2.1 mg/dl (1.6-2.3) 11/10/24 04:35
Triglycerides 159 mg/dl (10-149) H 11/06/24 02:41
LDL Cholesterol, Calc 111 mg/dl 11/06/24 02:41
VLDL Cholesterol, Calc 31 mg/dl (0-30) H 11/06/24 02:41
HDL Cholesterol 39 mg/dl 11/06/24 02:41
11/05/24
02:20
Fns-U-Cexdsawbeyg Pept 87.5
Physical Exam
Constitutional: No acute distress and Comfortable
EENT: Anicteric and Moist mucous membranes
Cardiovascular: Rhythm & rate is regular, Pedal edema is absent, JVD pressure is normal, S1S2 is normal and Murmur/rub/gallop absent
Respiratory: Respiratory effort normal and Other (Decreased throughout.)
GI: Soft, Distention absent, Flat, Non tender and Normal bowel sounds
Neuro/Psych: AO x 3
Data Reviewed
-
Date of Service: November 10, 2024
Medical Decision Making: Reviewed Test Results, Independent Historian Assessment, Test Interpretation and Review of Case with other Provider
EKG: Tracing Personally Visualized and interpreted and Report Reviewed by me
Echo: Report Reviewed by me
X-Ray/CT/US/MRI/NUC/PET: Image Personally Visualized and interpreted and Report Reviewed by me
Medical Tests (PFT, Pathology etc): Image Personally Visualized and interpreted and Report Reviewed by me
Labs: Labs Reviewed by me
Old Records: Reviewed
[2024-11-10] MEDS: PLAVIX 75 MG PO (08:09)
[2024-11-10] MEDS: BACTROBAN 2% OINTMENT 1 APPLIC NASAL ×2 (08:09→19:23)
[2024-11-10] MEDS: LOW STRENGTH ASPIRIN 81 MG PO (08:10)
[2024-11-10] MEDS: ZYLOPRIM 300 MG PO (08:10)
[2024-11-10] MEDS: SENOKOT-S 1 TABLET PO ×2 (08:10→19:18)
[2024-11-10] MEDS: COLCHICINE 0.3 MG PO (08:11)
[2024-11-10] MEDS: PROTONIX 40 MG PO (08:12)
[2024-11-10] MEDS: NEURONTIN 100 MG PO ×3 (08:12→22:44)
[2024-11-10] MEDS: MAGNESIUM OXIDE 500 MG PO ×2 (08:12→19:18)
[2024-11-10] MEDS: LIDOCAINE 4% PATCH 1 PATCH TOPICAL (08:13)
--- NOTE | 2024-11-10 08:30 | PTCARENOTE ---
Received pt from [facility]. Walking rounds completed. Pt assessment completed in bed. Pt is AAOx4. NSR on monitor. HR 67, B/P 124/64. AV wires connect at 50-10-0.4. Pulses palpable, generalized trace edema. Lungs clear, diminished in bases. 2L NC
POX 92%. C/T intact, suction to -20 cm. orange indicator in window. no tidaling or crepitus noted. I/S 500. Discussed use of I/S and pt demonstrated use. Abdomen soft, non-tender to touch. NBS. Pt voiding kaiser urine WNL. Med Sternal incision LANGUAGE PATHOLOGIST
with surgical glue present, R saphenous LANGUAGE PATHOLOGIST with bruise, R groin intact. L PVA intact, flushes, no redness or edema noted. R I/J cordis intact. Discussed plan of care with pt. Pt agrees with plan
--- NOTE | 2024-11-10 09:45 | PTCARENOTE ---
Assumed care of patient. Pt assessed while he was lying in bed. Pt alert and oriented x4. Denies pain, shortness of breath, and nausea. Pt ambulated in calixot with cardiac rehab. NSR on tele with rates in the 60s. BP 109/52. Bilateral radial and DP
pulses palpable. No edema noted. epicardial AV wires to temp box set to AAI 50/10. No pacing noted. POX 95% on 3L. Lungs diminished in the bases. CDB encouraged. Mediastinal chest tubes x2 y-sited to 1 atrium to -20cm suction draining
serosanguineous fluid. No air leaks, tidaling, crepitus noted. Abdomens soft, nontender. +BS. +gas. Voiding appropriately in the urinal. Sternal incision approximated with skin glue, COLLATERAL SPECIALIST. Chest tube dressing CDI. Right SVG harvest approximated with
skin glue, SIM. Right groin puncture SIM. Right IJ cordis intact. Left arm PIV intact. See MAR for medication administration. See worklist for complete nursing assessment. Plan of care reviewed and patient in agreement.
--- NOTE | 2024-11-10 09:45 | PTCARENOTE ---
CT ACCOUNT ASSOCIATE at bedside to pull AV wires. Pt tolerated. q15 min vitals and CT output measured.
[2024-11-10] MEDS: LASIX 40 MG IV (11:15)
--- NOTE | 2024-11-10 11:15 | PTCARENOTE ---
10ml serosanguinous fluid from mediastinal chest tubes post AV wire pull. CT CALENDERER notified and orders given to d/c mediastinal chest tubes. Completed. pt tolerated. Remains NSR with rates in the 60s. BP 104/54. POX 97% on 3L, titrated to 1L, POX 94%.
No other acute changes. Resting in bed at this time.
[2024-11-10 12:20] LABS: Glucose - Point of Care 116 mg/dl (70-99)
[2024-11-10] MEDS: NSS IV (13:34)
--- NOTE | 2024-11-10 16:05 | CM ---
CM following for DC planning needs.
Reviewed initial assessment. Pt. is from [address] home w/ spouse. Pt. is functionally indep. w/ ADLs, mobility without the use of any assisted device.
Antic. DC plan is for home w/ CT Transitional Care RN.
CM to follow.
--- NOTE | 2024-11-10 16:30 | PTCARENOTE ---
Pt reassessed. NSR on tele with rates in the 60s. BP 101/59. POX 90% on RA. Surgical sites stable. pt assisted OOB to chair without difficult. Pt tolerated. Family at bedside.
--- NOTE | 2024-11-10 19:30 | PTCARENOTE ---
report received from previous RN, walking rounds done. pt in bed, AAOx4. pt denies any pain at this time. VSS. NSR on monitor, HR 70s. B/L radial and DP pulses palpable. heart tones clear. B/L breath sounds present. POX 93% on room air. IS
encouraged. bowel sounds audible. pt voids without difficulty. all surgical sites stable. RIJ cordis intact and patent. see worklist for full assessment, VS, and interventions. pt resting comfortably.
[2024-11-11] VITALS (14 sets, daily range): BP systolic 97–128; BP diastolic 45–96; PULSE 67; O2SAT 92–98; BMI 29.8
--- NOTE | 2024-11-11 02:10 | W.PN.CT ---
Today's Communication / Plan
-
-No overnight events
-was orthostatic, BB resumed, Amiodarone currently on hold
-CTs DCd and wires DCd
-Cont. current meds (ASA, Plavix, Lopressor, Alirocumab; will start DOAC on POD#4 for A-fib hx/MAZE)
-Diuresed yesterday, UOP 200/950 in 12/24 hrs
-Encourage use of IS
-OOB into chair/Ambulate
Assessment / Plan
-
Assessment:
-S/P Standard sternotomy with aortic and right atrial cannulation/ CABG x 2 (In situ MCMAHON to LAD, Ao to RSVG to high diagonal)/Small incision vein harvesting of RLE/Left atrial maze [posterior wall isolation with encompass clamp]/ Left atrial
appendage exclusion [45 mm clip], 11/08/24, pod#3
-Single vessel CAD involving the mid LAD S/P unsuccessful attempted PCI, 11/05/24
-Anterior STEMI
-USA
-LVEF 64%
-Brilinta washout
-Hyperlipidemia (statin intolerance, on Alirocumab @ home)
-Hypertension
-New onset Atrial fibrillation with rapid ventricular response
-Class 1 obesity (BMI 30)
-Renal calculi
-BPH
-LE neuropathy d/t viral infection
-S/P Recent left thumb cyst removal by Dr. Campbell
-S/P Inguinal hernia repair 60 years ago
-Acute postop blood loss/Anemia (stable without blood transfusion)
-Acute postop hematuria (resolved)
-Acute postop atelectasis
-Acute postop hypovolemia with subsequent hypervolemia
-EKG c/w acute postop pericarditis (+rub, not in excruciating pain)
-Acute postop orthostasis
-Acute postop hyponatremia, 134
Subjective
Procedure
S/P Standard sternotomy with aortic and right atrial cannulation/ CABG x 2 (In situ MCMAHON to LAD, Ao to RSVG to high diagonal)/Small incision vein harvesting of RLE/Left atrial maze [posterior wall isolation with encompass clamp]/ Left atrial
appendage exclusion [45 mm clip], 11/08/24
-
Date of Service: November 11, 2024
Objective Data
-
PT 15.9 Sec (11.4-14.6) H 11/08/24 15:33
INR 1.21 11/08/24 15:33
APTT 31.0 Sec (23.4-35.0) 11/08/24 15:33
Vital Signs
Vital Signs
Temp Pulse Resp BP Pulse Ox
98.7 F 72 17 114/57 96
11/10/24 22:47 11/10/24 23:00 11/10/24 22:47 11/10/24 22:47 11/10/24 22:47
CT Intake/Output/Weight
11/10/24 11/10/24 11/11/24
06:59 18:59 06:59
Intake Total 580 / 1571.6 330 / 330
Output Total 710 / 1275 850 / 1050 200 / 1050
Balance -130 / 296.6 -520 / -720 -200 / -720
SaO2: 96
Physical Exam
-
General: Awake, Oriented and AOx3
Cardiovascular: Regular rate & rhythm, No Murmurs and No Rub
Respiratory: Clear and Equal
Sternum: Stable
Incision: Clean, Dry and Intact
Extremities: No Edema and No Erythema
Data Reviewed
-
Lab Results: Results Reviewed
Medications: Active Meds Reviewed
Chest X-Ray: Report Reviewed
ECG: Report Reviewed
--- NOTE | 2024-11-11 04:15 | PTCARENOTE ---
VSS, no changes in assessment. NSR, HR 70s. POX 93% on 2LNC. all surgical sites stable. RIJ cordis remains intact. AM labs drawn and sent. pt sleeping between care.
[2024-11-11 04:24] LABS: Hematocrit 33.9 % (39.0-52.0); Hemoglobin 11.4 g/dL (13.0-18.0); Mean Corp Hgb Conc. 33.6 g/dL (33.0-37.0); Mean Corpuscular Hgb 30.2 pg (27.0-31.0); Mean Corpuscular Volume 89.7 fL (80.0-94.0); Platelet Count 164 10^3/uL (130-400); Red Blood Cell Count 3.78 10^6/uL (4.70-6.10); Red Cell Dist. Width 14.6 % (11.5-14.5); White Blood Cell Count 15.7 10^3/uL (4.8-10.8)
[2024-11-11 04:52] LABS: Blood Urea Nitrogen 25 mg/dl (9-20); Calcium 9.6 mg/dl (8.4-10.2); Carbon Dioxide 31 mmol/L (22-30); Chloride 97 mmol/L (98-107); Estimated Creatinine Clearance 88 ml/min; Glucose 111 mg/dl (70-99); Magnesium 2.2 mg/dl (1.6-2.3); Potassium 4.3 mmol/L (3.5-5.1); Sodium 133 mmol/L (135-145); eGFR > 60.00
[2024-11-11] MEDS: TYLENOL 1000 MG PO ×3 (06:39→22:59)
--- NOTE | 2024-11-11 07:26 | W.PN.CD ---
Today's Communication / Plan
-
Continue routine post operative management.
D/C clopidogrel.
Start apixaban 5 mg BID.
Incentive spirometry.
Ambulate.
DC soon.
Impression / Plan
-
Impression/Plan: 64 y/o male with HLD/statin intolerance and neuropathy admitted with AF/RVR and STEMI. Cardiac catheterization revealed complex, bifurcation lesion, ultimately unamenable to PCI, but STEMI aborted (ISELA III flow, no chest pain).
He was subsequently referred for urgent, inpatient CABG.
#CAD/Aborted STEMI:
-Acute, threat to life.
-Cath from 11/05/24 showed complex ruptured plaque in the mid LAD involving the origin of the second diagonal branch and mid to distal LAD. Unsuccessful attempt to cross the highly eccentric segment in the mid LAD and the procedure was terminated.
Preserved LV systolic function noted.
-Now s/p coronary artery bypass grafting x 2 (In situ MCMAHON to LAD, SVG to high diagonal) with Dr. Zavala, 11/08/24.
-Routine post operative management.
-Encourage incentive spirometry and ambulation.
-Discussed with surgery. D/C clopidogrel in favor of apixaban 5 mg BID.
#AFIB with RVR, paroxysmal:
-New diagnosis.
-Currently in NSR.
-Rate/rhythm control with left atrial MAZE [posterior wall isolation with encompass clamp]. Favor low dose metoprolol to guard against recurrence of RVR if he relapses into AF.
-CHADS2-VASC = 2 (Age x1, vascular disease).
-S/P LAAE (#40 Atriclip). Start apixaban 5 mg BID.
#Dyslipidemia/statin intolerance (myalgia)
-Chronic, stable.
-Total cholesterol = 181, LDL = 111, HDL = 39, Triglycerides = 159.
-Goal LDL < 55, Triglycerides < 150.
-Tolerating outpatient alirocumab. Ezetimibe 10 mg started.
-Repeat lipid panel in 3 months.
-He may benefit from outpatient icosapent ethyl.
#Dispo
-CTS angling for DC soon.
Subjective/Interval History:
Na down to 133.
Weight is down 0.8 kg.
He feels well.
DATA:
TTE, 11/07/24:
CONCLUSIONS
Normal left ventricular size and systolic function. No regional wall motion
abnormalities are seen.
LV ejection fraction is 64% by volumetric assessment.
Mild concentric left ventricular hypertrophy. Normal diastolic function.
Normal right ventricular size and function.
No significant valvular disease.
Right heart pressures could not be determined.
No prior study available for comparison.
Cardiac Catheterization, 11/05/2024:
CONCLUSIONS
1. Complex ruptured plaque in the mid LAD involving the origin of the second diagonal branch and mid to distal LAD. I was unsuccessful while attempting to cross the highly eccentric segment in the mid LAD and the procedure was terminated.
2. Preserved LV systolic function.
Physical Exam
Vital Signs/Labs
Vital Signs
Temp Pulse Resp BP Pulse Ox
36.7 C 69 18 117/66 93
11/11/24 04:10 11/11/24 06:00 11/11/24 04:10 11/11/24 04:10 11/11/24 04:10
11/09/24 11/10/24 11/11/24
11:59 11:59 11:59
Actual Weight 108.4 kg 108.8 kg 108 kg
11/11/24 04:13
11/11/24 04:13
PT 15.9 Sec (11.4-14.6) H 11/08/24 15:33
INR 1.21 11/08/24 15:33
APTT 31.0 Sec (23.4-35.0) 11/08/24 15:33
Magnesium 2.2 mg/dl (1.6-2.3) 11/11/24 04:13
Triglycerides 159 mg/dl (10-149) H 11/06/24 02:41
LDL Cholesterol, Calc 111 mg/dl 11/06/24 02:41
VLDL Cholesterol, Calc 31 mg/dl (0-30) H 11/06/24 02:41
HDL Cholesterol 39 mg/dl 11/06/24 02:41
11/05/24
02:20
Zta-D-Hvujfpvvzyn Pept 87.5
Physical Exam
Constitutional: No acute distress and Comfortable
EENT: Anicteric and Moist mucous membranes
Cardiovascular: Rhythm & rate is regular, Pedal edema is absent, JVD pressure is normal, S1S2 is normal and Murmur/rub/gallop absent
Respiratory: Respiratory effort normal, Wheeze Absent, Crackles Absent, Rhonchi Absent and Other (Decreased/tubular breath sounds at bilateral bases.)
GI: Soft, Distention absent, Flat, Non tender and Normal bowel sounds
Neuro/Psych: AO x 3
Data Reviewed
-
Date of Service: November 11, 2024
Medical Decision Making: Reviewed Test Results, Independent Historian Assessment and Test Interpretation
EKG: Tracing Personally Visualized and interpreted and Report Reviewed by me
Echo: Tracing Personally Visualized and interpreted and Report Reviewed by me
X-Ray/CT/US/MRI/NUC/PET: Image Personally Visualized and interpreted and Report Reviewed by me
Medical Tests (PFT, Pathology etc): Image Personally Visualized and interpreted and Report Reviewed by me
Labs: Labs Reviewed by me
[2024-11-11] MEDS: ELIQUIS 5 MG PO ×2 (08:23→21:09)
[2024-11-11] MEDS: COLCHICINE 0.3 MG PO (08:24)
[2024-11-11] MEDS: LOW STRENGTH ASPIRIN 81 MG PO (08:24)
[2024-11-11] MEDS: NEURONTIN 100 MG PO (08:24)
[2024-11-11] MEDS: ZYLOPRIM 300 MG PO (08:26)
[2024-11-11] MEDS: SENOKOT-S 1 TABLET PO ×2 (08:26→21:10)
[2024-11-11] MEDS: MAGNESIUM OXIDE 500 MG PO ×2 (08:27→21:10)
[2024-11-11] MEDS: TOPROL XL 12.5 MG PO (08:27)
[2024-11-11] MEDS: DIAMOX 250 MG PO (08:27)
[2024-11-11] MEDS: PROTONIX 40 MG PO (08:27)
[2024-11-11] MEDS: BACTROBAN 2% OINTMENT 1 APPLIC NASAL ×2 (08:28→21:13)
[2024-11-11] MEDS: LIDOCAINE 4% PATCH TOPICAL (08:28)
--- NOTE | 2024-11-11 08:39 | PTCARENOTE ---
Received pt from third shift lieutenant RN; pt AAOx3 and resting comfortably in chair; NSR on monitor and VSS; RIJ Cordis and PIV x1 patent; Lungs diminished; IS to 1000; Positive bowel sounds; pt voiding yellow urine; no edema noted; all surgical sites C/D/I;
see nursing documentation for further details.
--- NOTE | 2024-11-11 09:00 | W.DCSUMMARY ---
Discharge Summary
Discharge Data
Date of Admission: 11/05/24
Date of Discharge: 11/12/24
-
Pending Results: No
Hospital Course
Primary care physician: Fortino Blount
Outpatient cnc mill programmer: Jaydon Glover
Inpatient consultants: [facility] Cardiology
Procedures:
1. Coronary artery bypass grafting
Primary Diagnosis:
1. STEMI
Secondary Diagnoses:
1. Complex fracture plaque mid LAD unamenable to PCI
2. de nova atrial fibrillation
3. Hyperlipidemia
4. History of renal stones (uric acid) �removed
5. History of recent left thumb cyst removal
6. Postoperative pericarditis
7. Postoperative sinus bradycardia
8. Acute postoperative orthostasis
9. Postoperative hyponatremia
HPI: 64-year-old male with past medical history of CAD and hyperlipidemia, presented to [facility] on 11/05/24 with symptoms of palpitations and mild shortness of breath. He was found to be in A-fib with rapid ventricular
response and ST elevations in the lateral leads. A STEMI alert was called and patient converted to sinus rhythm around 7:30 AM. Patient was Brilinta loaded in the ER.
Hospital course: Patient was taken to the cardiac Outreach Team Member and was found to have a complex ruptured plaque of the mid LAD which also involve the second diagonal branch. PCI was unsuccessful. Patient was taken the operating room on 11/08 for CABG
x 2 with MCMAHON to LAD and saphenous vein graft to the diagonal, maze, and left atrial appendage clip by Dr. Ishmael Zavala. Patient required no intraoperative blood products and returned to CVICU on Levophed, insulin, and Precedex. He was extubated
at 1840 on the day of surgery. On postoperative day #1, Levophed was discontinued. Patient did experience dizziness getting out of bed. Amiodarone and beta-asuncion were held. Patient was atrially paced with improved blood pressure. Patient did
have a pericardial rub with EKG consistent with pericarditis. Colchicine was initiated. Statins were not initiated due to history of anaphylaxis. Patient will resume home dosing of Praluent. On postoperative day #2, patient remained in sinus
rhythm and temporary pacing wires and chest tubes were discontinued. Patient received 40 mg of IV Lasix with good diuresis. Beta-asuncion was successfully initiated. On postoperative day #3, Plavix was discontinued and patient transition to
aspirin/Eliquis due to history of de stacy atrial fibrillation on admission. Mucinex was initiated for dry cough. And low-dose DAMON inhibitor was started for goal directed medical therapy due to STEMI. Left thumb cyst incision was stable without
erythema. Home dose of Allopurinol resumed for treatment of uric acid based renal stones. Potassium citrate 10 mEq twice daily also started for treatment of uric acid based renal stones. On postoperative day #4, patient ambulated in hallway and
showered without difficulty. Mr. Srivastava was evaluated by Dr. Zavala and deemed stable for discharge to home.
Home medication changes:
New:
Aspirin/Eliquis for new onset atrial fibrillation
Colchicine for postoperative pericarditis
Lisinopril 2.5mg daily for STEMI
Toprol XL 12.5mg daily for coronary disease
Protonix 40mg daily for GI prophylaxis while on Eliquis
Discharge Plan
-
Patient Disposition: Home (Routine Discharge)
Discharge Diagnosis/Procedures: STEMI s/p CABG , MAZE, left atrial appendage clip
Condition: Good
Diet: Low Cholesterol and Low Sodium
Activity: No strenuous activity
Driving Restrictions: Not until seen by your Dr
Bathing Restrictions: OK to Shower
Blood Work: BMP in 1 week
Other Services: Cardiac Rehab
Wound Care: Shower daily with soap and water. Pat incisions dry. No cream or lotion to incisions x 4 weeks
Specialty Instructions: Weigh Daily- Call MD for wt gain/loss 3 lbs overnight/5 lbs in 1 week
Referrals:
CT Transitional Care Nurse [Outside]
[facility]. Cardiac Rehab [Outside] - 12/13/24 1:00 pm
(Cardiac Rehab Orientation appointment is on 12/13/24 at 1:00 pm
The Cardiac Rehab gym is located on the first floor of the [facility].)
Gabbi Carballo NP [Specified Professional Personl] - 12/20/24 11:00 am
Fortino Blount DO [Family Provider] -
Ishmael Zavala MD [Active] - 12/05/24 2:45 pm
Prescriptions:
New
pantoprazole 40 mg Tablet,Delayed Release (Dr/Ec)
40 mg PO DAILY Qty: 30 1RF
Eliquis 5 mg Tablet
5 mg PO BID Qty: 60 1RF
acetaminophen 325 mg Tablet
650 mg PO Q4HPRN PRN (Reason: mild pain,headache,temp >101F ) Qty: 0 0RF
oxycodone 5 mg Tablet
5 mg PO Q4HPRN PRN (Reason: severe pain) Qty: 20 0RF
metoprolol succinate 25 mg Tablet Extended Release 24 Hr
12.5 mg PO DAILY Qty: 30 1RF
colchicine 0.6 mg Tablet
0.3 mg PO DAILY Qty: 30 0RF
lisinopril 2.5 mg Tablet
2.5 mg PO DAILY Qty: 30 1RF
Continued
aspirin 81 mg Tablet,Chewable
81 mg PO DAILY
alirocumab 75 mg/mL Pen Injector
75 mg SC Q2W
potassium citrate 10 mEq (1,080 mg) Tablet Extended Release
10 meq PO BID Qty: 0 0RF
allopurinol 300 mg Tablet
300 mg PO DAILY Qty: 0 0RF
Discharge Orders:
Discharge Patient (As Directed); Ordered 11/12/24
Ordered By: Rachel Mae
Care Plan Goals
Care Plan Goals:
Problem: Readiness for enhanced knowledge related to diagnosis and treatment plan
Goal: Understand your diagnosis and treatment plan needs, including medications if applicable.
Instructions: Know your diagnosis, underlying causes and treatment plan options, including medications if applicable. Consult with your health care team to learn about your diagnosis and treatment plan, including medications if applicable.
Discharge Date and Time
Print Language: UKRAINIAN
--- NOTE | 2024-11-11 10:13 | CM ---
Priced Eliquis thru patient's pharmacy; estimated cost of Eliquis is $47/mo.
Pharmacy has this medication in stock.
Free 30 d coupon placed in chart.
[2024-11-11] MEDS: MUCINEX 1200 MG PO ×2 (11:44→21:09)
--- NOTE | 2024-11-11 12:13 | PTCARENOTE ---
Patient assessed. Sitting OOB in chair comfortably. VSS NSR on monitor. Assessment unchanged RIJ cordis removed per order.
[2024-11-11] MEDS: NSS IV (13:08)
--- NOTE | 2024-11-11 14:39 | CM ---
CM following for DC planning needs.
Met w/ patient and 2 dtrs. at bedside. Pt. reports that he is feeling well, POD#3.
Reviewed DC plan for home w/ CT Transitional Care RN.
Pt. made aware of estimated Eliquis cost and is in agreement. Coupon placed in chart.
Discussed post op MD appointments + Cardiac Rehab.
Plan is for home w/ CT RN.
Will cont. to follow.
--- NOTE | 2024-11-11 16:07 | PTCARENOTE ---
NSR on monitor and VSS; assessment unchanged and pt resting comfortably in chair with family at bedside.
[2024-11-11] MEDS: DULCOLAX 10 MG PO (17:13)
[2024-11-11] MEDS: ZESTRIL 2.5 MG PO (17:13)
--- NOTE | 2024-11-11 20:00 | PTCARENOTE ---
Assumed care of patient at 1900. Patient found OOB in chair at time of assessment. Patient is AOx4, follows commands appropriately, moves all extremities. Lung sounds are diminished at the bases, saO2 94% on RA. Heart sounds are audible, patient is
SR on the monitor, normal palpable pulses, and no observable edema noted. No BM reported yet, but active BS in all four quadrants patient voiding dark kaiser urine. There is a sternal incision approx with surg adhesive SIM, RLE incision approx with
surg adhesive SIM, and CT wounds with abd dressing that is CDI. Patient has R PIV available for intermittent infusion. No c/o pain. VSS. Call woods within reach.
[2024-11-12] VITALS (9 sets, daily range): BP systolic 100–128; BP diastolic 55–96; PULSE 66; O2SAT 96–98; BMI 29.5
--- NOTE | 2024-11-12 02:14 | PTCARENOTE ---
Patient reassessed. VSS. While voiding patient noted to have tea colored urine some sediment noted in urinal. No c/o dysuria. CT PA notified pending orders for UA. Remains SR on the monitor. Call woods within reach.
[2024-11-12 03:53] LABS: Hematocrit 34.8 % (39.0-52.0); Hemoglobin 11.7 g/dL (13.0-18.0); Mean Corp Hgb Conc. 33.6 g/dL (33.0-37.0); Mean Corpuscular Hgb 29.5 pg (27.0-31.0); Mean Corpuscular Volume 87.9 fL (80.0-94.0); Mean Platelet Volume 9.9 fL (7.4-10.4); Platelet Count 187 10^3/uL (130-400); Red Blood Cell Count 3.96 10^6/uL (4.70-6.10); Red Cell Dist. Width 14.2 % (11.5-14.5); White Blood Cell Count 12.9 10^3/uL (4.8-10.8)
[2024-11-12 04:21] LABS: Blood Urea Nitrogen 25 mg/dl (9-20); Carbon Dioxide 24 mmol/L (22-30); Chloride 98 mmol/L (98-107); Estimated Creatinine Clearance 80 ml/min; Glucose 111 mg/dl (70-99); Magnesium 2.3 mg/dl (1.6-2.3); Potassium 3.8 mmol/L (3.5-5.1); Sodium 131 mmol/L (135-145); eGFR > 60.00
--- NOTE | 2024-11-12 04:24 | PTCARENOTE ---
Patient reassessed. VSS. AM labs obtained. Urine specimen obtained. AM hygiene care provided. Remains SR on the monitor callbell within reach.
[2024-11-12 04:27] LABS: Urine Albumin Trace (Neg - Trace); Urine Bilirubin Negative (Negative); Urine Character Slightly Cloudy (Clear); Urine Color Yellow; Urine Glucose Negative (Negative); Urine Ketone Negative (Negative); Urine Leukocyte Negative (Negative); Urine Nitrite Negative (Negative); Urine Occult Blood 4+ (Negative); Urine Urobilinogen Negative (Neg - 1+)
--- NOTE | 2024-11-12 04:48 | W.PN.CT ---
Today's Communication / Plan
-
Plan:
-No major issues overnight. Hemodynamically and neurologically intact
-No further orthostasis
-Tolerating low dose BB. Lisinopril started given STEMI
-Resumed Eliquis for A-fib hx/MAZE. Plavix d/c'd
-Cont. current meds (ASA, Eliquis, Lopressor, Alirocumabr A-fib hx/MAZE)
-F/U 2-view cxr
-Monitor hyponatremia, 131. Fluid restriction, lasix this AM
-Replete K of 3.8
-Encourage use of IS
-OOB into chair/Ambulate
-Home today
Assessment / Plan
-
Assessment:
-S/P Standard sternotomy with aortic and right atrial cannulation/ CABG x 2 (In situ MCMAHON to LAD, Ao to RSVG to high diagonal)/Small incision vein harvesting of RLE/Left atrial maze [posterior wall isolation with encompass clamp]/ Left atrial
appendage exclusion [45 mm clip], 11/08/24, pod#4
-Single vessel CAD involving the mid LAD S/P unsuccessful attempted PCI, 11/05/24
-Anterior STEMI
-USA
-LVEF 64%
-Brilinta washout
-Hyperlipidemia (statin intolerance, on Alirocumab @ home)
-Hypertension
-New onset Atrial fibrillation with rapid ventricular response
-Class 1 obesity (BMI 30)
-Renal calculi
-BPH
-LE neuropathy d/t viral infection
-S/P Recent left thumb cyst removal by Dr. Campbell
-S/P Inguinal hernia repair 60 years ago
-Acute postop blood loss/Anemia (stable without blood transfusion)
-Acute postop hematuria (resolved)
-Acute postop atelectasis
-Acute postop hypovolemia with subsequent hypervolemia
-EKG c/w acute postop pericarditis (+rub, not in excruciating pain)
-Acute postop orthostasis
-Acute postop hyponatremia, 134
Discussed patient care with: Cardiology, Nursing, Respiratory Therapy, Pharmacy and Care Team
Subjective
Procedure
S/P Standard sternotomy with aortic and right atrial cannulation/ CABG x 2 (In situ MCMAHON to LAD, Ao to RSVG to high diagonal)/Small incision vein harvesting of RLE/Left atrial maze [posterior wall isolation with encompass clamp]/ Left atrial
appendage exclusion [45 mm clip], 11/08/24
-
Date of Service: November 12, 2024
Pt c/o mild incisional pain, otherwise feels well. Walking halls without difficulty
Objective Data
-
Lab Results
11/12/24 03:19
11/12/24 03:19
PT 15.9 Sec (11.4-14.6) H 11/08/24 15:33
INR 1.21 11/08/24 15:33
APTT 31.0 Sec (23.4-35.0) 11/08/24 15:33
Vital Signs
Vital Signs
Temp Pulse Resp BP Pulse Ox
98.6 F 66 20 128/63 92
11/12/24 03:00 11/12/24 03:00 11/12/24 03:00 11/12/24 02:59 11/12/24 03:00
CT Intake/Output/Weight
11/11/24 11/11/24 11/12/24
06:59 18:59 06:59
Output Total 200 / 1050 900 / 1775 875 / 1775
Balance -200 / -720 -900 / -1775 -875 / -1775
SaO2: 92 (RA)
Physical Exam
-
General: Awake, Oriented and AOx3
Cardiovascular: Regular rate & rhythm, No Murmurs, No Rub and No Gallop
Respiratory: Decreased Breath Sounds (at bases, otherwise clear)
Sternum: Stable
Incision: Clean, Dry, Intact and Dressing Intact
Extremities: No Edema
Data Reviewed
-
Lab Results: Results Reviewed
Medications: Active Meds Reviewed
Chest X-Ray: Report Reviewed and Image Reviewed
ECG: Report Reviewed and Image Reviewed
[2024-11-12 05:02] LABS: Urine Amorphous Seen
[2024-11-12 05:03] LABS: Urine Bacteria Moderate (Negative); Urine White Cell 0-2 /HPF (0-5)
[2024-11-12] MEDS: TYLENOL 1000 MG PO (06:18)
[2024-11-12] MEDS: KCL 40 MEQ PO (06:18)
[2024-11-12] MEDS: LASIX 20 MG IV (06:33)
--- NOTE | 2024-11-12 08:00 | PTCARENOTE ---
Received pt from nightman RN; pt AAOx3 and resting comfortably in chair; NSR on monitor and VSS; PIV x1 patent; Lungs diminished; IS to 1250; positive bowel sounds, pt had BM this morning; pt voiding yellow urine; palpable throughout; no edema
noted; all surgical sites C/D/I; see nursing documentation for further details.
[2024-11-12] MEDS: MUCINEX 1200 MG PO (08:11)
[2024-11-12] MEDS: PROTONIX 40 MG PO (08:11)
[2024-11-12] MEDS: LOW STRENGTH ASPIRIN 81 MG PO (08:11)
[2024-11-12] MEDS: COLCHICINE 0.3 MG PO (08:11)
[2024-11-12] MEDS: TOPROL XL 12.5 MG PO (08:11)
[2024-11-12] MEDS: SENOKOT-S 1 TABLET PO (08:12)
[2024-11-12] MEDS: ZYLOPRIM 300 MG PO (08:12)
[2024-11-12] MEDS: MAGNESIUM OXIDE 500 MG PO (08:12)
[2024-11-12] MEDS: ELIQUIS 5 MG PO (08:12)
[2024-11-12] MEDS: LIDOCAINE 4% PATCH TOPICAL (08:13)
[2024-11-12] MEDS: BACTROBAN 2% OINTMENT 1 APPLIC NASAL (08:15)
[2024-11-12] MEDS: UROCIT-K 10 MEQ PO (08:35)
--- NOTE | 2024-11-12 11:24 | PTCARENOTE ---
Pt showered self with CHG; diagnostics tech removed; IV removed; discharge instructions gone over with patient and family; pt transported in wheelchair for discharge home with .
== END 2024-11-12 11:30 | disposition home or self-care (01) | DRG 234 ==
LOC: CVICU 08:22
PROVIDERS: Anesthesiology; Clinical Nurse Specialist Acute Care; Emergency Medicine; Internal Medicine; Internal Medicine Interventional Cardiology; Nurse Practitioner; Student in an Organized Health Care Education/Training Program; ADMITTING PHYSICIAN Internal Medicine; ATTENDING PHYSICIAN Thoracic Surgery (Cardiothoracic Vascular Surgery); CONSULT PHYSICIAN Internal Medicine Cardiovascular Disease; CONSULT PHYSICIAN Internal Medicine Critical Care Medicine; EMERGENCY PHYSICIAN Emergency Medicine; FAMILY PHYSICIAN Internal Medicine
PROC: 4A023N7 Measurement of Cardiac Sampling and Pressure, Left Heart, Percutaneous Approach (ICD-10-PCS; 2024-11-05)
PROC: B2151ZZ Fluoroscopy of Left Heart using Low Osmolar Contrast (ICD-10-PCS; 2024-11-05)
PROC: B2111ZZ Fluoroscopy of Multiple Coronary Arteries using Low Osmolar Contrast (ICD-10-PCS; 2024-11-05)
PROC: 02580ZZ Destruction of Conduction Mechanism, Open Approach (ICD-10-PCS; 2024-11-08)
PROC: 02100Z9 Bypass Coronary Artery, One Artery from Left Internal Mammary, Open Approach (ICD-10-PCS; 2024-11-08)
PROC: B24BZZ4 Ultrasonography of Heart with Aorta, Transesophageal (ICD-10-PCS; 2024-11-08)
PROC: 5A1221Z Performance of Cardiac Output, Continuous (ICD-10-PCS; 2024-11-08)
PROC: 021009W Bypass Coronary Artery, One Artery from Aorta with Autologous Venous Tissue, Open Approach (ICD-10-PCS; 2024-11-08)
PROC: 02L70CK Occlusion of Left Atrial Appendage with Extraluminal Device, Open Approach (ICD-10-PCS; 2024-11-08)
PROC: 06BP0ZZ Excision of Right Saphenous Vein, Open Approach (ICD-10-PCS; 2024-11-08)
DX: I21.09 ST elevation (STEMI) myocardial infarction involving other coronary artery of anterior wall (principal); E87.1 Hypo-osmolality and hyponatremia; Q24.5 Malformation of coronary vessels; D62 Acute posthemorrhagic anemia; J98.11 Atelectasis; I30.8 Other forms of acute pericarditis; I47.10 Supraventricular tachycardia, unspecified; I25.10 Atherosclerotic heart disease of native coronary artery without angina pectoris; E78.00 Pure hypercholesterolemia, unspecified; I48.91 Unspecified atrial fibrillation; E83.52 Hypercalcemia; I10 Essential (primary) hypertension; R00.1 Bradycardia, unspecified; I95.1 Orthostatic hypotension; E55.9 Vitamin D deficiency, unspecified; E66.811 Obesity, class 1; G57.90 Unspecified mononeuropathy of unspecified lower limb; R31.9 Hematuria, unspecified; E86.1 Hypovolemia; E87.70 Fluid overload, unspecified; Z68.29 Body mass index [BMI] 29.0-29.9, adult; Z79.82 Long term (current) use of aspirin; Z79.899 Other long term (current) drug therapy; Z82.49 Family history of ischemic heart disease and other diseases of the circulatory system; Z87.442 Personal history of urinary calculi
CPT/HCPCS: 71045; 71046; 71250; 80048; 80053; 80061; 81003; 81015; 82248; 82306; 82330; 82565; 82805; 82947; 82962; 83036; 83735; 83880; 83970; 84132; 84302; 84443; 84484; 84520; 85014; 85018; 85025; 85027; 85049; 85347; 85610; 85730; 86850; 86900; 86901; 86920; 87086; 92920; 93005; 93306; 93312; 93320; 93325; 93458; 93880; 93923; 93931; 94002; 96374; 96375; 99291; C1769; C1894; J2916; Q9967

== ENCOUNTER → 2024-11-22 10:15 | Outpatient (REF) | payer MEDICARE, SELFPAY | LOC: REG 10:15 | PROVIDERS: ATTENDING PHYSICIAN Nurse Practitioner; FAMILY PHYSICIAN Internal Medicine | DX: R05.1 Acute cough (principal) | CPT/HCPCS: 71046 ==

== ENCOUNTER 2024-12-03 08:47 | Emergency (ER) | payer MEDICARE, SELFPAY ==
[2024-12-03 08:50] VITALS: BP 134/79
[2024-12-03 09:04] VITALS: BP 124/82
--- NOTE | 2024-12-03 09:20 | ED.GENMED ---
History of Present Illness
General
Chief Complaint: Heart Rate Problem
Source: patient
Exam Limitations: none
Time Seen by Provider: 12/03/24 09:01
History of Present Illness
History of Present Illness:
See MDM
Past History
Past History
ED Past Medical History: CAD and HTN
ED Past Surgical History: Cardiac
Social History
Tobacco: Non-smoker
Alcohol: None
Phy Exam
Physical Exam
Physical Exam:
See MDM
Course
Orders/Labs/Results
Orders:
Orders
12/03/24 08:54
Electrocardiogram (*1) Urgent
Reason for Study: Bradycardia / Tachycardia
EKG- Treatment ONCE
12/03/24 09:20
0.9% Sodium Chloride 1000 ml [Nss] 1,000 ml IV BOLUS
12/03/24 09:29
Complete Blood Count/With Diff Urgent
Comprehensive Metabolic Panel Urgent
Magnesium Urgent
12/03/24 09:41
Electrocardiogram (*1) Urgent
Reason for Study: Palpitations
EKG- Treatment ONCE
12/03/24 10:33
Amiodarone [Pacerone] 400 mg PO NOW STA
Abnormal Lab Results
12/03/24
09:29
RBC 4.65 L 10^6/uL
(4.70-6.10)
Lymphocytes % 20.0 L %
(20.5-51.1)
Eosinophils % 6.1 H %
(0-6)
BUN 25 H mg/dl
(9-20)
Glucose 120 H mg/dl
(70-99)
Calcium 10.5 H mg/dl
(8.4-10.2)
12/03/24 09:29
12/03/24 09:29
Vital Signs
Initial and Last Documented VS:
Initial Vital Signs
Temp Pulse BP Pulse Ox
99.0 F 140 134/79 99
12/03/24 08:50 12/03/24 08:50 12/03/24 08:50 12/03/24 08:50
Last Documented Vital Signs
Temp Pulse Resp BP Pulse Ox
99.0 F 79 22 109/70 98
12/03/24 08:50 12/03/24 10:30 12/03/24 10:30 12/03/24 10:00 12/03/24 10:30
MDM/Problems Addressed
Differential Diagnosis Includes:
HPI and MDM Narrative:
64-year-old male presenting with palpitations. Patient had CABG performed 1 month ago. Since then, he has cleaned compliance with Eliquis and Toprol. He woke up around 3 AM and noted that he was in a fast heart rhythm. He talked to his on-call
cardiothoracic surgeon team and was instructed to take his 12.5 mg Toprol early. This seemed to help and he felt he was back in a normal sinus rhythm and he went back to bed. When he woke up, he was back in a fast heart rhythm and took his morning
dose of 12.5 mg Toprol. Patient took his Eliquis and came on arrival, patient found to be in A flutter. He complains of palpitations but denies chest pain or shortness of breath
Given his prior history, will discuss case with cardiology on-call to decide whether to continue with beta-asuncion, switch to Cardizem or consider bedside cardioversion
Physical exam
General: Well appearing and non-toxic
HEENT: protecting airway
Neck: appears supple
CV: No evidence of cyanosis. Tachycardic and regular
Chest: Sternotomy incision clean and intact and healing
Resp: No accessory muscle use
Abd: Non-distended
Extremities: No deformities. No leg edema or tenderness
Neuro: alert
Psych: Normal affect
Skin: Intact
Problems Addressed including Acute and Chronic Conditions affecting care:
1. Atrial flutter
Acuity: acute
Prognosis: unstable
Details: Likely in the setting of recent CABG. Will discuss case with cardiology
Updates
After IV fluids were started, patient converted to sinus rhythm. Case discussed with cardiology who suggested continuing his metoprolol dosing and adding amiodarone. Will start 400 mg amiodarone twice daily for 2 weeks and then discussed reducing
it to 200 mg daily when I see him on the appointment on the .
Differential Diagnosis (but not limited to): A flutter, SVT, A-fib
Testing considered: TSH but prior records and that it was recently checked and normal
Drug therapy (if applicable): OTC meds, please see d/c instruction regarding Rx drugs
Amount and/or Complexity of Data Reviewed
Clinical info obtained from: Patient
External data reviewed: Recent CABG x 2
Labs I independently reviewed (but not limited to): BUN mildly elevated
Radiology: N/A
Pulse Ox: not hypoxic
EKG independently reviewed: A flutter, tachycardic, no STEMI
Behavioral Health Rn: Initially a flutter then converted to sinus rhythm
Critical Care: N/A
Risk of Complication:
Social Determinants of health: Good social support
Discussed with other providers: Cardiology
Escalation of Care includes Admit/Obs: After being observed in the Emergency Department, pt stable for discharge.
Occasional wrong word or 'sound a like' substitutions may have occurred due to the inherent limitations of voice recognition software. Read the chart carefully and recognize, using context, where substitutions have occurred.
*Critical Care Note
Total Time (30-74mins, 75-104mins- exclusive of procedures): Not Applicable
ED Attending Note
-
Portions of this chart may have been created with voice recognition software.� Occasional wrong word or��sound alike� substitutions may have occurred due to the inherent limitations of voice recognition software.
Discharge Plan
Departure
Patient Disposition: Home (Routine Discharge)
Date of Disposition: 12/03/24
Time of Disposition: 10:35
Patient with high blood pressure during this ER visit?: No
Discharge Problem:
Atrial flutter
Instructions: Atrial Fibrillation (DC)
Prescriptions:
New
amiodarone 400 mg tablet
400 mg PO BID 30 Days Qty: 60 0RF
No Action
aspirin 81 mg Tablet,Chewable
81 mg PO DAILY
alirocumab 75 mg/mL Pen Injector
75 mg SC Q2W
pantoprazole 40 mg Tablet,Delayed Release (Dr/Ec)
40 mg PO DAILY Qty: 30 1RF
Eliquis 5 mg Tablet
5 mg PO BID Qty: 60 1RF
acetaminophen 325 mg Tablet
650 mg PO Q4HPRN PRN (Reason: mild pain,headache,temp >101F ) Qty: 0 0RF
oxycodone 5 mg Tablet
5 mg PO Q4HPRN PRN (Reason: severe pain) Qty: 20 0RF
metoprolol succinate 25 mg Tablet Extended Release 24 Hr
12.5 mg PO DAILY Qty: 30 1RF
colchicine 0.6 mg Tablet
0.3 mg PO DAILY Qty: 30 0RF
lisinopril 2.5 mg Tablet
2.5 mg PO DAILY Qty: 30 1RF
potassium citrate 10 mEq (1,080 mg) Tablet Extended Release
10 meq PO BID Qty: 0 0RF
allopurinol 300 mg Tablet
300 mg PO DAILY Qty: 0 0RF
Referrals:
Fortino Blount DO [Family Provider] -
Activity Restrictions/Additional Instructions:
The pin game machine inspector is aware that you were here today. He is recommending starting a new medicine called amiodarone. We are starting the dosing at 400 mg twice a day for the next 2 weeks. After the next 2 weeks, cardiology suggested reducing the
medicine to 200 mg daily. They will discuss this when I see you on the 12th. I wrote enough amiodarone to get you through to the next month but cardiology will change the prescription when they see you.
Please relay this information to your surgeons appointment on Thursday as well.
Please return for any worsening symptoms.
You may return at any time if you have further concerns.
Interventions
Interventions:
*Risk Screen - Suicide Last Done: 12/03/24 08:54
*Neglect/Abuse Screening Last Done: 12/03/24 08:54
ED- Cardiac Assessment Last Done: 12/03/24 09:53
Discharge Date and Time
Print Language: VIET[place]ESE
[2024-12-03] MEDS: NSS 1000 IV (09:30)
[2024-12-03 09:53] VITALS: BMI 29.2
[2024-12-03 10:00] VITALS: BP 109/70
[2024-12-03 10:04] LABS: % Basophils 0.4 % (0-2); % Eosinophils 6.1 % (0-6); % Immature Granulocytes 0.3 % (0-0.5); % Monocytes 6.8 % (1.7-9.3); % Neutrophils 66.4 % (42.2-75.2); Absolute Eosinophils 0.5 10^3/uL (0-0.7); Absolute Lymphocytes 1.6 10^3/uL (1.2-3.4); Absolute Monocytes 0.5 10^3/uL (0.1-0.6); Absolute Neutrophils 5.3 10^3/uL (1.4-6.5); Hematocrit 39.6 % (39.0-52.0); Hemoglobin 13.4 g/dL (13.0-18.0); Mean Corp Hgb Conc. 33.8 g/dL (33.0-37.0); Mean Corpuscular Hgb 28.8 pg (27.0-31.0); Mean Corpuscular Volume 85.2 fL (80.0-94.0); Mean Platelet Volume 9.5 fL (7.4-10.4); Nucleated Red Blood Cells % 0 % (-); Platelet Count 324 10^3/uL (130-400); Red Blood Cell Count 4.65 10^6/uL (4.70-6.10); Red Cell Dist. Width 13.8 % (11.5-14.5)
[2024-12-03 10:07] LABS: ALT (SGPT) 27 U/L (0-50); AST (SGOT) 24 U/L (17-59); Albumin 4.2 g/dl (3.5-5.0); Alkaline Phosphatase 77 U/L (38-126); Blood Urea Nitrogen 25 mg/dl (9-20); Calcium 10.5 mg/dl (8.4-10.2); Carbon Dioxide 25 mmol/L (22-30); Chloride 101 mmol/L (98-107); Estimated Creatinine Clearance 88 ml/min; Glucose 120 mg/dl (70-99); Magnesium 2.1 mg/dl (1.6-2.3); Potassium 4.4 mmol/L (3.5-5.1); Sodium 136 mmol/L (135-145); Total Bilirubin 0.5 mg/dl (0.2-1.3); Total Protein 7.2 g/dl (6.3-8.2); eGFR > 60.00
[2024-12-03] MEDS: PACERONE 400 MG PO (10:47)
== END 2024-12-03 11:23 | disposition home or self-care (01) ==
LOC: EMR 08:47
PROVIDERS: EMERGENCY PHYSICIAN Student in an Organized Health Care Education/Training Program; FAMILY PHYSICIAN Internal Medicine
DX: I48.92 Unspecified atrial flutter (principal); I25.10 Atherosclerotic heart disease of native coronary artery without angina pectoris; I10 Essential (primary) hypertension; Z79.899 Other long term (current) drug therapy; Z95.1 Presence of aortocoronary bypass graft
CPT/HCPCS: 96360; 99284; 80053; 83735; 85025; 93005

== ENCOUNTER 2024-12-16 16:42 | Outpatient (RCR) | payer MEDICARE, SELFPAY | END 2024-12-16 16:45 | disposition home or self-care (01) | LOC: CRHB 16:42 | PROVIDERS: ATTENDING PHYSICIAN Internal Medicine Cardiovascular Disease | DX: I25.10 Atherosclerotic heart disease of native coronary artery without angina pectoris (principal); I25.2 Old myocardial infarction; Z95.1 Presence of aortocoronary bypass graft | CPT/HCPCS: G0422; G0423 ==

== ENCOUNTER 2024-12-26 14:57 | Outpatient (RCR) | payer MEDICARE, SELFPAY | END 2024-12-26 23:59 | disposition home or self-care (01) | LOC: CRHB 14:57 | PROVIDERS: ATTENDING PHYSICIAN Internal Medicine Cardiovascular Disease; FAMILY PHYSICIAN Internal Medicine | DX: I21.01 ST elevation (STEMI) myocardial infarction involving left main coronary artery (principal); Z95.1 Presence of aortocoronary bypass graft | CPT/HCPCS: G0422; G0423 ==

== ENCOUNTER 2024-12-28 12:42 | Emergency (ER) | payer MEDICARE, SELFPAY ==
[2024-12-28 12:48] VITALS: BP 151/80
--- NOTE | 2024-12-28 13:10 | ED.GENMED ---
History of Present Illness
General
Chief Complaint: Chest Pain
Source: patient
Exam Limitations: none
Time Seen by Provider: 12/28/24 12:54
Nursing documentation reviewed up to this point in time: agreed with
History of Present Illness
History of Present Illness:
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
Patient has taken Tylenol with relief in symptoms. At the time of evaluation ED, patient only reports 'soreness'. Patient denies having had similar symptoms. Denies shortness of breath. Denies nausea or vomiting. Denies fever or chills.
Denies direct trauma. Patient is currently undergoing cardiac rehab as an outpatient. Patient is still altered taking aspirin and Eliquis.
Past History
Past History
ED Past Medical History: CAD and HTN
ED Past Surgical History: Cardiac
Social History
Tobacco: Non-smoker
Alcohol: None
Review of Systems
Review of Systems
Allergies reviewed?: Yes
All Other Systems: ROS reviewed and negative except as documented in HPI and ROS
Constitutional: Reports no symptoms
Respiratory: Reports no symptoms; Denies trouble breathing
Cardiac: Reports chest pain; Denies diaphoresis or palpitations
ABD/GI: Reports no symptoms; Denies nausea or vomiting
Musculoskeletal: Reports no symptoms
Skin: Reports no symptoms
Neurological: Reports no symptoms
Phy Exam
Physical Exam
Physical Exam:
Physical Exam
General: no apparent distress, not acutely ill. afebrile
Head: nc/at. eomi
Neck: supple. normal range of motion.
Heart: s1/s2 regular rate and rhythm, no murmur.
Lungs: no acute respiratory distress. clear bilaterally. chest wall nontender to palpation.
Abdomen: normal bowel sounds. not tender.
Neuro: alert and oriented x 3. no focal neurological deficits
Skin: no rash
Psychiatric: well kept. interactive and cooperative
Extremities: no edema. no calf tenderness.
Scores
Heart Score for Chest Pain Patients
STEMI patient?: No
History: Slightly or Non-Suspicious
ECG: Normal
Age: >/= 65 years
Risk Factors: >/= 3 Risk Factors or History of CAD
Troponin: </= Normal Limit
Heart Score for Chest Pain Patients: 4
Heart Score Risk: 20.3% MACE over next 6 weeks
Course
Orders/Labs/Results
Orders:
Orders
12/28/24 12:42
Electrocardiogram (*1) Urgent
Reason for Study: Chest Pain
EKG- Treatment ONCE
12/28/24 13:04
CR Chest - 2 Views Urgent
Comment:
Reason For Exam: left upper anterior chest pain
12/28/24 13:18
Complete Blood Count/With Diff Urgent
Comprehensive Metabolic Panel Urgent
Troponin I Urgent
Abnormal Lab Results
12/28/24
13:18
MCHC 32.2 L g/dL
(33.0-37.0)
Absolute Neuts (auto) 7.6 H 10^3/uL
(1.4-6.5)
Absolute Monos (auto) 1.2 H 10^3/uL
(0.1-0.6)
Lymphocytes % 15.5 L %
(20.5-51.1)
Monocytes % 11.2 H %
(1.7-9.3)
Sodium 133 L mmol/L
(135-145)
Chloride 96 L mmol/L
(98-107)
12/28/24 13:18
12/28/24 13:18
Vital Signs
Initial and Last Documented VS:
Initial Vital Signs
Temp Pulse Resp BP Pulse Ox
98.6 F 75 20 151/80 97
12/28/24 12:48 12/28/24 12:48 12/28/24 12:48 12/28/24 12:48 12/28/24 12:48
Last Documented Vital Signs
Temp Pulse Resp BP Pulse Ox
98.6 F 72 23 119/68 96
12/28/24 12:48 12/28/24 16:00 12/28/24 16:00 12/28/24 16:00 12/28/24 16:00
MDM/Problems Addressed
MDM/Problems Addressed:
Patient with an unremarkable workup in ED, including blood work, EKG, and chest x-ray. EKG reveals mild diffuse ST elevation, consistent with likely inflammatory changes. PE less likely, as patient is currently on aspirin and Eliquis. Patient
appears comfortable during observation, without any further symptoms. 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 Advised to return to ED with any
worsening symptoms. Patient and spouse expressed understanding at time of discharge.
*EKG
Interpreted by ED Provider?: Yes
EKG Intrepretation Date: 12/28/24
Heart Rate: 75
Rate: normal
Rhythm: sinus
[place]: normal axis
Interval: normal interval
*Critical Care Note
Total Time (30-74mins, 75-104mins- exclusive of procedures): Not Applicable
ED Attending Note
-
Portions of this chart may have been created with voice recognition software.� Occasional wrong word or��sound alike� substitutions may have occurred due to the inherent limitations of voice recognition software.
Discharge Plan
Departure
Patient Disposition: Home (Routine Discharge)
Date of Disposition: 12/28/24
Time of Disposition: 15:41
Patient with high blood pressure during this ER visit?: Yes
Discharge Problem:
Chest pain
Instructions: Chest Pain CBC Follow Up
Prescriptions:
No Action
aspirin 81 mg Tablet,Chewable
81 mg PO DAILY
alirocumab 75 mg/mL Pen Injector
75 mg SC Q2W
pantoprazole 40 mg Tablet,Delayed Release (Dr/Ec)
40 mg PO DAILY Qty: 30 1RF
Eliquis 5 mg Tablet
5 mg PO BID Qty: 60 1RF
acetaminophen 325 mg Tablet
650 mg PO Q4HPRN PRN (Reason: mild pain,headache,temp >101F ) Qty: 0 0RF
oxycodone 5 mg Tablet
5 mg PO Q4HPRN PRN (Reason: severe pain) Qty: 20 0RF
metoprolol succinate 25 mg Tablet Extended Release 24 Hr
12.5 mg PO DAILY Qty: 30 1RF
colchicine 0.6 mg Tablet
0.3 mg PO DAILY Qty: 30 0RF
lisinopril 2.5 mg Tablet
2.5 mg PO DAILY Qty: 30 1RF
potassium citrate 10 mEq (1,080 mg) Tablet Extended Release
10 meq PO BID Qty: 0 0RF
allopurinol 300 mg Tablet
300 mg PO DAILY Qty: 0 0RF
amiodarone 400 mg tablet
400 mg PO BID 30 Days Qty: 60 0RF
Referrals:
Jaydon Glover MD [Active] -
Fortino Blount DO [Family Provider] -
Activity Restrictions/Additional Instructions:
As discussed, please follow-up with your primary photo graphics librarian for reevaluation. Please consider returning to ED with any worsening symptoms.
Interventions
Interventions:
*Risk Screen - Suicide Last Done: 12/28/24 12:48
*General Assessment Last Done: 12/28/24 13:00
*Neglect/Abuse Screening Last Done: 12/28/24 13:00
*ED COVID-19 Vaccine History Last Done: 12/28/24 13:00
*Nursing Disposition Last Done: 12/28/24 16:20
ED- Cardiac Assessment Last Done: 12/28/24 13:00
Discharge Date and Time
Discharge Date/Time: 12/28/24 16:21
Print Language: CHINESE
[2024-12-28 13:19] VITALS: BP 117/78
[2024-12-28 13:20] VITALS: BMI 29.5
[2024-12-28 13:38] LABS: % Basophils 0.2 % (0-2); % Immature Granulocytes 0.3 % (0-0.5); % Lymphocytes 15.5 % (20.5-51.1); % Monocytes 11.2 % (1.7-9.3); % Neutrophils 71.8 % (42.2-75.2); Absolute Eosinophils 0.1 10^3/uL (0-0.7); Absolute Lymphocytes 1.6 10^3/uL (1.2-3.4); Absolute Monocytes 1.2 10^3/uL (0.1-0.6); Absolute Neutrophils 7.6 10^3/uL (1.4-6.5); Hematocrit 40.7 % (39.0-52.0); Hemoglobin 13.1 g/dL (13.0-18.0); Mean Corp Hgb Conc. 32.2 g/dL (33.0-37.0); Mean Corpuscular Hgb 27.8 pg (27.0-31.0); Mean Corpuscular Volume 86.4 fL (80.0-94.0); Mean Platelet Volume 9.4 fL (7.4-10.4); Nucleated Red Blood Cells % 0 % (-); Platelet Count 250 10^3/uL (130-400); Red Blood Cell Count 4.71 10^6/uL (4.70-6.10); Red Cell Dist. Width 14.2 % (11.5-14.5); White Blood Cell Count 10.6 10^3/uL (4.8-10.8)
[2024-12-28 14:01] VITALS: BP 120/73
[2024-12-28 14:01] LABS: ALT (SGPT) 19 U/L (0-50); AST (SGOT) 18 U/L (17-59); Albumin 4.4 g/dl (3.5-5.0); Alkaline Phosphatase 66 U/L (38-126); Blood Urea Nitrogen 19 mg/dl (9-20); Calcium 9.8 mg/dl (8.4-10.2); Carbon Dioxide 25 mmol/L (22-30); Chloride 96 mmol/L (98-107); Estimated Creatinine Clearance 73 ml/min; Glucose 99 mg/dl (70-99); Potassium 4.3 mmol/L (3.5-5.1); Sodium 133 mmol/L (135-145); Total Protein 7.2 g/dl (6.3-8.2); eGFR > 60.00
[2024-12-28 14:10] LABS: Troponin I < 0.012 ng/ml
[2024-12-28 15:00] VITALS: BP 121/65
[2024-12-28 16:00] VITALS: BP 119/68
== END 2024-12-28 16:21 | disposition home or self-care (01) ==
LOC: EMR 12:42
PROVIDERS: Emergency Medicine; EMERGENCY PHYSICIAN Emergency Medicine; FAMILY PHYSICIAN Internal Medicine
DX: R07.89 Other chest pain (principal); I25.10 Atherosclerotic heart disease of native coronary artery without angina pectoris; I10 Essential (primary) hypertension; Z79.899 Other long term (current) drug therapy; Z95.1 Presence of aortocoronary bypass graft
CPT/HCPCS: 99285; 71046; 80053; 84484; 85025; 93005

== ENCOUNTER → 2025-01-09 10:10 | Outpatient (REF) | payer MEDICARE, SELFPAY | LOC: HWRCS 10:10 | PROVIDERS: ATTENDING PHYSICIAN Internal Medicine; FAMILY PHYSICIAN Internal Medicine | DX: I25.810 Atherosclerosis of coronary artery bypass graft(s) without angina pectoris (principal); I30.8 Other forms of acute pericarditis | CPT/HCPCS: 93308 ==

== ENCOUNTER 2025-02-06 18:02 | Outpatient (RCR) | payer MEDICARE, SELFPAY | END 2025-02-06 23:59 | disposition home or self-care (01) | LOC: CRHB 18:02 | PROVIDERS: ATTENDING PHYSICIAN Internal Medicine Cardiovascular Disease; FAMILY PHYSICIAN Internal Medicine | DX: I21.01 ST elevation (STEMI) myocardial infarction involving left main coronary artery (principal); Z95.1 Presence of aortocoronary bypass graft; I25.10 Atherosclerotic heart disease of native coronary artery without angina pectoris; I25.2 Old myocardial infarction | CPT/HCPCS: G0422; G0423 ==

== ENCOUNTER 2025-03-03 17:40 | Outpatient (RCR) | payer MEDICARE, SELFPAY | END 2025-03-03 23:59 | disposition home or self-care (01) | LOC: CRHB 17:40 | PROVIDERS: ATTENDING PHYSICIAN Internal Medicine Cardiovascular Disease; FAMILY PHYSICIAN Internal Medicine | DX: I21.01 ST elevation (STEMI) myocardial infarction involving left main coronary artery (principal); I25.10 Atherosclerotic heart disease of native coronary artery without angina pectoris (principal); Z95.1 Presence of aortocoronary bypass graft; I25.2 Old myocardial infarction | CPT/HCPCS: G0422; G0423 ==

== ENCOUNTER 2025-03-29 18:17 | Outpatient (RCR) | payer MEDICARE, SELFPAY | END 2025-03-30 11:37 | disposition home or self-care (01) | LOC: CRHB 18:17 | PROVIDERS: ATTENDING PHYSICIAN Internal Medicine Cardiovascular Disease; FAMILY PHYSICIAN Internal Medicine | DX: I25.10 Atherosclerotic heart disease of native coronary artery without angina pectoris (principal); I21.01 ST elevation (STEMI) myocardial infarction involving left main coronary artery (principal); Z95.1 Presence of aortocoronary bypass graft; I25.2 Old myocardial infarction | CPT/HCPCS: G0422 ==

== ENCOUNTER → 2025-06-06 10:15 | Outpatient (REF) | payer MEDICARE, SELFPAY | LOC: RCS 10:15 | PROVIDERS: ATTENDING PHYSICIAN Internal Medicine Cardiovascular Disease; FAMILY PHYSICIAN Internal Medicine | DX: I48.0 Paroxysmal atrial fibrillation (principal) | CPT/HCPCS: 93225; 93226 ==